=== PATIENT | female | born 1950 | race Caucasian/White ===

== ENCOUNTER → 2018-03-23 | Outpatient (REF) | payer MEDICARE | LOC: M LAB REF 11:48 | DX: N39.0 Urinary tract infection, site not specified (principal) | CPT/HCPCS: 87186 ==

== ENCOUNTER → 2019-05-11 | Outpatient (CLI) | payer MEDICARE ==
[~2019-05-11] MED LIST: ALLE180T33 PO; ATOR1TAB19 PO; ESCI20TA PO; FLON27.5; HYDR25TAB PO; MAGN1CAP PO; METHACHOLINE KIT (J7674) INH ONE; MONT10TA2 PO; OMEP-221 PO; VENTAER INH
--- NOTE | 2019-05-13 13:52 | PFTRPT ---
Height: 64.50 Inches Weight: 117.00 Lbs BSA: 1.57 Diagnosis: COUGH DATE OF PROCEDURE: 05/13/2019 ORDERED BY: Mary Frazier INTERPRETATION: Study of excellent technical quality. Under protocol, methacholine was administered. Even after a maximal dose of 25 mg or 188.875 CDUs, no provocation dose ever achieved. IMPRESSION: Negative methacholine challenge study. MTDD
== END ==
LOC: M CARPUL 10:59
PROVIDERS: ATTEND Nurse Practitioner Adult Health
DX: R05 Cough (principal)
CPT/HCPCS: 94070; 95070; J7674

== ENCOUNTER 2019-06-04 13:15 | Emergency (ER) | payer MEDICARE ==
[~2019-06-04 13:15] MED LIST changes: -METHACHOLINE KIT (J7674) INH ONE
[2019-06-04] MEDS ORDERED: NS 1,000 ML IV SCH (13:24)
--- NOTE | 2019-06-04 13:53 | REP ---
CT HEAD WITHOUT CONTRAST: HISTORY: Altered mental status. An area of decreased attentuation is present in the right basal ganglia. This represents and old lacunar infarction. Areas of decreased attenuation are present in the periventricular white matter. This represents small vessel ischemic disease. There is no intraparenchymal hemorrhage, mass or midline shift. The ventricular system and cortical sulci are dilated consistent with mild volume loss. There is no extracerebral collection. Mucosal thickening is present in the left maxillary sinus. IMPRESSION: 1. Old right basal ganglia lacunar infarction. 2. Small vessel ischemic disease. 3. Mild volume loss. Electronically Signed by Keshav Moore MD 06/04/2019 04:38 P
[2019-06-04 14:27] LABS: BASO % 0.6 % (0.0-1.0); EOS # 0.1 10^3/uL (0.0-0.50); EOS % 1.2 % (0.0-3.0); HEMATOCRIT 39.1 % (36.0-47.0); HEMOGLOBIN 13.8 g/dl (12.0-15.5); LYMPH # 2.1 10^3/uL (1.5-4.5); LYMPH % 32.4 % (24.0-44.0); MEAN CORPUSCULAR HEMOGLOBIN 34.2 pg (27.0-33.0); MEAN CORPUSCULAR HGB CONC 35.3 g/dl (32.0-36.5); MONO # 0.6 10^3/uL (0.0-0.8); MONO % 8.9 % (0.0-5.0); NEUTROPHILS # 3.7 10^3/uL (1.8-7.7); NEUTROPHILS % 56.6 % (36.0-66.0); PLATELET COUNT, AUTOMATED 282 10^3/uL (150-450); RED BLOOD COUNT 4.03 10^6/uL (4.00-5.40); WHITE BLOOD COUNT 6.5 10^3/uL (4.0-10.0)
[2019-06-04 14:40] LABS: INR 0.98; PROTHROMBIN TIME 12.7 SECONDS (11.8-14.0)
[2019-06-04] MEDS ORDERED: HM S0.65 NARES (14:57)
[2019-06-04] MEDS ORDERED: ALLE1TAB23 PO (14:57)
[2019-06-04] MEDS ORDERED: LEXA1TAB2 PO (14:57)
[2019-06-04] MEDS ORDERED: ASPI-524 PO (14:57)
[2019-06-04 15:07] LABS: ALBUMIN 3.9 GM/DL (3.2-5.2); ALT/SGPT 31 U/L (12-78); BILIRUBIN,DIRECT 0.1 MG/DL (0.0-0.2); BILIRUBIN,TOTAL 0.4 MG/DL (0.2-1.0); BLOOD UREA NITROGEN 15 MG/DL (7-18); CALCIUM LEVEL 9.7 MG/DL (8.8-10.2); CARBON DIOXIDE LEVEL 28 MEQ/L (21-32); CHLORIDE LEVEL 103 MEQ/L (98-107); CPK CREATINE PHOSPHOKINASE 60 U/L (26-192); CREATININE FOR GFR 0.65 MG/DL (0.55-1.30); GLOMERULAR FILTRATION RATE > 60.0 (>45); GLUCOSE, FASTING 100 MG/DL (70-100); MB/CK RELATIVE INDEX 1.67 (< OR =4); POTASSIUM SERUM 3.5 MEQ/L (3.5-5.1); SODIUM LEVEL 138 MEQ/L (136-145); TOTAL PROTEIN 7.1 GM/DL (6.4-8.2); TROPONIN I < 0.02 NG/ML (< 0.10)
--- NOTE | 2019-06-04 15:23 | REP ---
CHEST, TWO VIEWS: There is no evidence of acute infiltrate. No pleural effusion is seen. The heart is normal in size. The mediastinal silhouette is unremarkable. The visualized osseous structures are intact. There are mild degenerative changes of the spine. IMPRESSION: No acute pulmonary disease. Electronically Signed by Kaiden Rodriges MD 06/04/2019 03:30 P
[2019-06-04 19:00] VITALS: BP 138/81
[2019-06-04 19:00] LABS: CK-MB VALUE MASS < 1.0 NG/ML (<3.6); CPK CREATINE PHOSPHOKINASE 63 U/L (26-192); MB/CK RELATIVE INDEX 1.59 (< OR =4); TROPONIN I < 0.02 NG/ML (< 0.10)
--- NOTE | 2019-06-06 07:44 | ECGEPIP ---
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
--- NOTE | 2019-06-06 07:55 | ECGEPIP ---
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
== END 2019-06-04 19:26 | disposition home or self-care (01) ==
LOC: M ED 13:15 → EDBD 13:15 → M ED 19:26
DX: G56.92 Unspecified mononeuropathy of left upper limb (principal); R07.89 Other chest pain; I10 Essential (primary) hypertension; E78.5 Hyperlipidemia, unspecified; J44.9 Chronic obstructive pulmonary disease, unspecified; F41.9 Anxiety disorder, unspecified; F32.9 Major depressive disorder, single episode, unspecified; Z91.018 Allergy to other foods; Z88.0 Allergy status to penicillin; Z88.1 Allergy status to other antibiotic agents; Z79.899 Other long term (current) drug therapy; Z79.82 Long term (current) use of aspirin

== ENCOUNTER → 2020-04-29 | Outpatient (CLI) | payer MEDICARE ==
[~2020-04-29] MED LIST changes: +ALLE1TAB23 PO; +ASPI325T57 PO; +HM S0.65 NARES; +LEXA1TAB2 PO; -MONT10TA2 PO; +MONT10TA4 PO
[2020-04-29 16:11] LABS: BASO # 0.1 10^3/uL (0.0-0.2); BASO % 0.6 % (0.0-1.0); EOS # 0.4 10^3/uL (0.0-0.5); EOS % 4.7 % (0.0-3.0); HEMATOCRIT 41.5 % (36.0-47.0); HEMOGLOBIN 13.3 g/dl (12.0-15.5); LYMPH # 2.9 10^3/uL (1.5-5.0); LYMPH % 36.6 % (24.0-44.0); MEAN CORPUSCULAR HEMOGLOBIN 32.9 pg (27.0-33.0); MEAN CORPUSCULAR VOLUME 102.7 fl (80.0-96.0); MONO # 0.7 10^3/uL (0.0-0.8); MONO % 8.7 % (0.0-5.0); NEUTROPHILS # 3.8 10^3/uL (1.5-8.5); PLATELET COUNT, AUTOMATED 303 10^3/uL (150-450); RED BLOOD COUNT 4.04 10^6/uL (4.00-5.40); WHITE BLOOD COUNT 7.8 10^3/uL (4.0-10.0)
[2020-05-02 20:08] LABS: Lyme Disease IgG/IgM Antibodie <0.91 ISR (0.00-0.90); Lyme Disease IgM Ab Quantitati <0.80 index (0.00-0.79)
== END ==
LOC: M WUC 14:13
PROVIDERS: ATTEND Nurse Practitioner Family
DX: M79.10 Myalgia, unspecified site (principal); R21 Rash and other nonspecific skin eruption

== ENCOUNTER 2021-05-26 11:01 | Inpatient (IN) | payer BC, MEDICAID, MEDICARE ==
[~2021-05-26] VITALS: Ht 162.6 cm; Wt 54.5 kg
[2021-05-26] MEDS: ESCITALOPRAM OXALATE 10 MG TAB (LEXAPRO) PO SCH (09:00)
[~2021-05-26 11:01] MED LIST changes: -ESCI20TA PO; +ESCI20TA16 PO; +HYDR-3490 PO; -HYDR25TAB PO; +MONT10TA10 PO; -MONT10TA4 PO
--- NOTE | 2021-05-26 12:14 | REP ---
INDICATION: altered. COMPARISON: Comparison study is from June 04, 2019.. TECHNIQUE: Helical scanning is acquired. 5 mm axial images were reformatted. Coronal MPR images were generated. FINDINGS: Bone window settings demonstrate an intact bony calvarium. There is no evidence of skull fracture or incidental bony calvarial lesion. The visualized paranasal sinuses appear clear. No intraorbital abnormality is seen. On soft tissue window setting images; the lateral, third, and fourth ventricles are normal in size and position. Rodriges-white differentiation pattern is normal above and below the tentorium. There are is no evidence of intracranial hemorrhage. No mass, edema, infarction, or midline shift is seen. No extra-axial fluid collection is appreciated. Vascular calcification is seen at the skull base involving the distal internal carotid arteries bilaterally. There is mild generalized volume loss again noted. Mild small vessel atherosclerotic changes are seen in the periventricular white matter bilaterally also unchanged from the comparison study June 04, 2019. IMPRESSION: Mild generalized volume loss and vascular calcification. Small vessel changes. No acute intracranial abnormality.. <Electronically signed by John Shaffer > 05/26/21 1213
[2021-05-26 12:42] LABS: HEMATOCRIT 39.8 % (36.0-47.0); HEMOGLOBIN 13.3 g/dl (12.0-15.5); MEAN CORPUSCULAR HGB CONC 33.4 g/dl (32.0-36.5); MEAN CORPUSCULAR VOLUME 98.8 fl (80.0-96.0); PLATELET COUNT, AUTOMATED 326 10^3/uL (150-450); RED BLOOD COUNT 4.03 10^6/uL (4.00-5.40); WHITE BLOOD COUNT 6.8 10^3/uL (4.0-10.0)
[2021-05-26 13:03] LABS: CPK CREATINE PHOSPHOKINASE 60 U/L (26-192); MB/CK RELATIVE INDEX 3.33 (< OR =4); TROPONIN I < 0.02 NG/ML (< 0.10)
[2021-05-26 13:09] LABS: ACETAMINOPHEN LEVEL < 2.0 UG/ML (10.0-30.0); ALBUMIN 3.5 GM/DL (3.2-5.2); ALT/SGPT 21 U/L (12-78); BILIRUBIN,DIRECT < 0.1 MG/DL (0.0-0.2); BILIRUBIN,TOTAL 0.3 MG/DL (0.2-1.0); BLOOD UREA NITROGEN 6 MG/DL (7-18); CALCIUM LEVEL 8.8 MG/DL (8.8-10.2); CARBON DIOXIDE LEVEL 28 MEQ/L (21-32); CHLORIDE LEVEL 104 MEQ/L (98-107); CREATININE FOR GFR 0.64 MG/DL (0.55-1.30); ETHYL ALCOHOL (ETHANOL) < 0.003 % (0.000-0.010); GLOMERULAR FILTRATION RATE > 60.0 (>39); GLUCOSE, FASTING 95 MG/DL (70-100); POTASSIUM SERUM 4.1 MEQ/L (3.5-5.1); SALICYLATE LEVEL < 1.7 MG/DL (5.0-30.0); SODIUM LEVEL 138 MEQ/L (136-145); TOTAL PROTEIN 6.8 GM/DL (6.4-8.2)
[2021-05-26] MEDS ORDERED: HOME MED LIST COMPLETE! XX SCH (15:10)
[2021-05-26] MEDS ORDERED: ACETAMINOPHEN TAB 650MG DOSE (2X325MG) PO PRN (15:25)
[2021-05-26] MEDS ORDERED: ALBUTEROL 90 MCG/ACT 8GM HFA INHALER INH PRN (15:25)
[2021-05-26] MEDS ORDERED: HALOPERIDOL 5MG/ML VIAL (J1630 PER 1) IM PRN (15:55)
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
[2021-05-26 17:10] LABS: RSV AMPLIFICATION NEGATIVE (NEGATIVE)
[2021-05-26 20:09] VITALS: BP 157/89
[2021-05-26] MEDS: MONTELUKAST 10 MG TAB PO SCH (21:00)
[2021-05-26] MEDS ORDERED: ASPIRIN 325 MG TAB PO PRN (21:35)
[2021-05-26 21:36] LABS: AMPHETAMINES LEVEL URINE NEGATIVE (NEGATIVE); BARBITURATES URINE NEGATIVE (NEGATIVE); BENZODIAZEPINES URINE NEGATIVE (NEGATIVE); CANNABINOIDS URINE NEGATIVE (NEGATIVE); COCAINE METABOLITE URINE NEGATIVE (NEGATIVE); METHADONE URINE NEGATIVE (NEGATIVE); OPIATES URINE NEGATIVE (NEGATIVE); PHENCYCLIDINE URINE NEGATIVE (NEGATIVE)
[2021-05-27 06:00] VITALS: BP 137/90
[2021-05-27 06:58] LABS: HEMATOCRIT 38.8 % (36.0-47.0); MEAN CORPUSCULAR HEMOGLOBIN 33.2 pg (27.0-33.0); MEAN CORPUSCULAR HGB CONC 33.5 g/dl (32.0-36.5); PLATELET COUNT, AUTOMATED 306 10^3/uL (150-450); RED BLOOD COUNT 3.92 10^6/uL (4.00-5.40); WHITE BLOOD COUNT 6.4 10^3/uL (4.0-10.0)
[2021-05-27 07:29] LABS: BLOOD UREA NITROGEN 7 MG/DL (7-18); CALCIUM LEVEL 9.1 MG/DL (8.8-10.2); CARBON DIOXIDE LEVEL 31 MEQ/L (21-32); CHLORIDE LEVEL 107 MEQ/L (98-107); CREATININE FOR GFR 0.67 MG/DL (0.55-1.30); GLOMERULAR FILTRATION RATE > 60.0 (>39); GLUCOSE, FASTING 87 MG/DL (70-100); POTASSIUM SERUM 4.5 MEQ/L (3.5-5.1); SODIUM LEVEL 141 MEQ/L (136-145)
--- NOTE | 2021-05-27 09:31 | ECGEPIP ---
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
[2021-05-27] MEDS: ESCITALOPRAM OXALATE 10 MG TAB (LEXAPRO) PO SCH (09:55)
[2021-05-27] MEDS: ENOXAPARIN 30MG/0.3ML SYRINGE (J1650 PER 10MG) SC SCH (10:03)
[2021-05-27 14:00] VITALS: BP 139/86
[2021-05-27] MEDS ORDERED: IBUPROFEN 600MG TAB PO PRN (15:30)
--- NOTE | 2021-05-27 18:55 | IPNPDOC ---
Subjective Date Seen The patient was seen on 05/27/21. Subjective Chief Complaint/HPI Mrs. Bone is a 70 year old female with dementia who comes here for possible AMS. Patient was seen in the morning. She was sleepy, but denied any chest pain or dyspnea. Son did arrive with patient's and they visited in the afternoon. Son told nurse that patient's memory has become worse. Patient has has had paranoia. She thinks that her is an imposter and would try to run away and drive the car away. She would get lost, and they would have to search for her. Objective Physical Examination General Exam: Positive: Alert, Cooperative Eye Exam: Positive: EOMI; Negative: Sclera icteric ENT Exam: Positive: Atraumatic Neck Exam: Positive: Supple Heart Exam: Positive: Tachycardic, Regular Rhythm Abdomen Exam: Positive: Normal bowel sounds, Soft; Negative: Tenderness Extremity Exam: Negative: Edema Neuro Exam: Positive: Normal Speech, Cranial Nerves 3-12 NL Psych Exam: Positive: Mental status NL, Mood NL; Negative: Memory Intact Assessment /Plan Assessment Mrs. Bone is a 70 year old female with dementia who comes here for possible AMS. We do not have a family member that we would be able to contact to help understand her baseline mentation. She does not have fever or leukocytosis and she is not on medications that would cause confusion. Will check a UA to look for UTI as a cause for altered mental status. If it is negative, then this may be due to her dementia. If it is dementia, she would need a family member to care for her 20/05 or be placed in a facility where she can be cared for. The is very frail. It may be difficult on the if patient went to live in a jail. If the patient went to live with son in [place], they would have to take too and make room for both. Plan/VTE VTE Prophylaxis Ordered?: Yes Plan 1. AMS vs progressing dementia -No family member to reach out to discuss baseline and home condition -Unlikely infection as patient has no fever, leukocytosis, pain, dyspnea, or hypoxia -Not on medications that would cause confusion -UA is not strongly indicative of infection. Demonstrate 1+ leuk esterase. Unlikely to be infection -If it is dementia, cannot safely discharge patient without someone to care for patient -Patient does not have capacity due to inability to reason or appreciate her situation -Will consult psychiatry for capacity evaluation 2. Hypertension -Patient is agitated which has increased her blood pressure -Continue HCTZ -Monitor blood pressure 3. Asthma -Stable, not in exacerbation -Continue albuterol and montelukast 4. Depression/Anxiety -Continue Escitalopram 5. DVT ppx -Lovenox Disposition: Pending evaluation by psychiatry VS, I&O, 24H, Fishbone Vital Signs/I&O Vital Signs Date Time Temp Pulse Resp B/P (MAP) Pulse Ox O2 Delivery O2 Flow Rate FiO2 05/27/21 14:00 98.5 100 17 139/86 (103) 93 Room Air I&O- Last 24 Hours up to 6 AM 05/27/21 06:00 Intake Total 100 ml Output Total 750 ml Balance -650 ml Laboratory Data 24H LABS Laboratory Tests 2 05/26/21 20:52: Urine Opiates Screen NEGATIVE, Urine Methadone Screen NEGATIVE, Urine Barbitura daniel Screen NEGATIVE, Urine Phencyclidine Screen NEGATIVE, Urine Amphetamines Screen NEGATIVE, Urine Benzodiazepines Screen NEGATIVE, Urine Cocaine Metabolite Screen NEGATIVE, Urine Cannabinoids Screen NEGATIVE 05/26/21 20:54: Urine Color YELLOW, Urine Appearance CLEAR, Urine pH 6.0, Urine Specific [place] 1.010, Urine Protein NEGATIVE, Urine Glucose (UA) NEGATIVE, Urine Ketones TRACEH, Urine Blood NEGATIVE, Urine Nitrite NEGATIVE, Urine Bilirubin NEGATIVE, Urine Urobilinogen 0.2, Urine Leukocyte Esterase 1+H, Urine WBC (Auto) 2, Urine RBC (Auto) 0, Urine Hyaline Casts (Auto) 0, Urine Bacteria (Auto) NEGATIVE, Urine Squamous Epithelial Cells 1, Urine Mucus (Auto) SMALL, Urine Sperm (Auto) 05/27/21 06:34: Nucleated Red Blood Cells % (auto) 0.0, Anion Gap 3L, Glomerular Filtration Rate > 60.0, Calcium Level 9.1 CBC/BMP Laboratory Tests 05/27/21 06:34 Microbiology Microbiology 05/26/21 Urine Culture, Received Pending RUSS IBARRA DO May 27, 2021 18:55
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
[2021-05-27] MEDS: MONTELUKAST 10 MG TAB PO SCH (21:00)
[2021-05-27] MEDS: QUEtiapine FUMARATE 12.5 MG HALF-TAB PO SCH (21:00)
[2021-05-28 06:00] VITALS: BP 130/86
[2021-05-28 06:51] LABS: HEMATOCRIT 39.4 % (36.0-47.0); HEMOGLOBIN 13.3 g/dl (12.0-15.5); MEAN CORPUSCULAR HEMOGLOBIN 33.3 pg (27.0-33.0); MEAN CORPUSCULAR HGB CONC 33.8 g/dl (32.0-36.5); MEAN CORPUSCULAR VOLUME 98.7 fl (80.0-96.0); PLATELET COUNT, AUTOMATED 335 10^3/uL (150-450); RED BLOOD COUNT 3.99 10^6/uL (4.00-5.40)
[2021-05-28 07:10] LABS: BLOOD UREA NITROGEN 7 MG/DL (7-18); CARBON DIOXIDE LEVEL 30 MEQ/L (21-32); CHLORIDE LEVEL 106 MEQ/L (98-107); GLOMERULAR FILTRATION RATE > 60.0 (>39); GLUCOSE, FASTING 96 MG/DL (70-100); POTASSIUM SERUM 4.2 MEQ/L (3.5-5.1); SODIUM LEVEL 140 MEQ/L (136-145)
[2021-05-28] MEDS: QUEtiapine FUMARATE 12.5 MG HALF-TAB PO SCH ×2 (09:00→20:15)
[2021-05-28] MEDS: ESCITALOPRAM OXALATE 10 MG TAB (LEXAPRO) PO SCH (11:19)
[2021-05-28] MEDS: ENOXAPARIN 30MG/0.3ML SYRINGE (J1650 PER 10MG) SC SCH (11:20)
--- NOTE | 2021-05-28 13:10 | IPNPDOC ---
Subjective Date Seen The patient was seen on 05/28/21. Subjective Chief Complaint/HPI Mrs. Bone is a 70 year old female with dementia who comes here for possible AMS. Yesterday, patient tried to leave saying that her is outside in the car waiting for her. Nursing art supervisor walker her to parking lot. No car there. She was walked back to her room. Most likely that she was confabulating. This morning, she denies any chest pain or dyspnea. I recommended that she take the quetiapine. Patient will need to be placed. I will make her ALC today. Objective Physical Examination General Exam: Positive: Alert, Cooperative Eye Exam: Positive: EOMI; Negative: Sclera icteric ENT Exam: Positive: Atraumatic Neck Exam: Positive: Supple Heart Exam: Positive: Tachycardic, Regular Rhythm Abdomen Exam: Positive: Normal bowel sounds, Soft; Negative: Tenderness Extremity Exam: Negative: Edema Neuro Exam: Positive: Normal Speech, Cranial Nerves 3-12 NL Psych Exam: Positive: Mental status NL, Mood NL; Negative: Memory Intact Assessment /Plan Assessment Mrs. Bone is a 70 year old female with dementia who comes here for possible AMS. We do not have a family member that we would be able to contact to help understand her baseline mentation. She does not have fever or leukocytosis and she is not on medications that would cause confusion. Will check a UA to look f or UTI as a cause for altered mental status. If it is negative, then this may be due to her dementia. If it is dementia, she would need a family member to care for her / or be placed in a facility where she can be cared for. On 05/28, urine culture had no growth. She does not have a UTI. The is very frail and has memory problems of his own. He most likely would not be able to care for her at home and she has tried to get away from him in the past. She has taken the car and gotten lost. Patient will be made ALC Plan/VTE VTE Prophylaxis Ordered?: Yes Plan 1. Progressing dementia -Unlikely infection as patient has no fever, leukocytosis, pain, dyspnea, or hypoxia. UA and culture negative -Not on medications that would cause confusion -Patient does not have capacity due to inability to reason or appreciate her situation -Psychiatry evaluated patient. Patient does not have capacity -Recommending Seroquel 12.5mg BID 2. Hypertension -Patient is agitated which has increased her blood pressure -Continue HCTZ -Monitor blood pressure 3. Asthma -Stable, not in exacerbation -Continue albuterol and montelukast 4. Depression/Anxiety -Continue Escitalopram 5. DVT ppx -Lovenox Disposition: Urine culture demonstrates no growth. Patient does not have a UTI. This is progressing dementia. Patient does not have capacity. Patient will most likely need to be placed. Will make patient ALC status today. VS, I&O, 24H, Fishbone Vital Signs/I&O Vital Signs Date Time Temp Pulse Resp B/P (MAP) Pulse Ox O2 Delivery O2 Flow Rate FiO2 05/28/21 06:00 98.0 87 17 130/86 (101) 96 Room Air I&O- Last 24 Hours up to 6 AM 05/28/21 06:00 Intake Total 380 ml Output Total 375 ml Balance 5 ml Laboratory Data 24H LABS Laboratory Tests 2 05/28/21 06:28: Nucleated Red Blood Cells % (auto) 0.0, Anion Gap 4L, Glomerular Filtration Rate > 60.0, Calcium Level 9.0 CBC/BMP Laboratory Tests 05/28/21 06:28 Microbiology Microbiology 05/26/21 Urine Culture - Final, Complete RUSS IBARRA DO May 28, 2021 13:10
[2021-05-28] MEDS: MONTELUKAST 10 MG TAB PO SCH (20:16)
[2021-05-29 06:00] VITALS: BP 133/80
[2021-05-29] MEDS: ENOXAPARIN 30MG/0.3ML SYRINGE (J1650 PER 10MG) SC SCH (08:22)
[2021-05-29] MEDS: ESCITALOPRAM OXALATE 10 MG TAB (LEXAPRO) PO SCH (08:22)
[2021-05-29] MEDS: QUEtiapine FUMARATE 12.5 MG HALF-TAB PO SCH ×3 (08:22→21:00)
[2021-05-29] MEDS: MONTELUKAST 10 MG TAB PO SCH (21:00)
[2021-05-30 06:00] VITALS: BP 144/89
[2021-05-30 06:10] LABS: HEMATOCRIT 40.3 % (36.0-47.0); HEMOGLOBIN 13.6 g/dl (12.0-15.5); MEAN CORPUSCULAR HEMOGLOBIN 32.7 pg (27.0-33.0); MEAN CORPUSCULAR HGB CONC 33.7 g/dl (32.0-36.5); MEAN CORPUSCULAR VOLUME 96.9 fl (80.0-96.0); PLATELET COUNT, AUTOMATED 396 10^3/uL (150-450); RED BLOOD COUNT 4.16 10^6/uL (4.00-5.40); WHITE BLOOD COUNT 6.4 10^3/uL (4.0-10.0)
[2021-05-30 06:30] LABS: BLOOD UREA NITROGEN 9 MG/DL (7-18); CALCIUM LEVEL 9.4 MG/DL (8.8-10.2); CARBON DIOXIDE LEVEL 30 MEQ/L (21-32); CHLORIDE LEVEL 102 MEQ/L (98-107); CREATININE FOR GFR 0.64 MG/DL (0.55-1.30); GLOMERULAR FILTRATION RATE > 60.0 (>39); GLUCOSE, FASTING 92 MG/DL (70-100); POTASSIUM SERUM 4.2 MEQ/L (3.5-5.1); SODIUM LEVEL 139 MEQ/L (136-145)
[2021-05-30] MEDS: QUEtiapine FUMARATE 12.5 MG HALF-TAB PO SCH ×3 (09:00→21:00)
[2021-05-30] MEDS: ESCITALOPRAM OXALATE 10 MG TAB (LEXAPRO) PO SCH (09:29)
[2021-05-30] MEDS: ENOXAPARIN 30MG/0.3ML SYRINGE (J1650 PER 10MG) SC SCH (09:29)
[2021-05-30] MEDS: MONTELUKAST 10 MG TAB PO SCH (21:00)
[2021-05-31 06:00] VITALS: BP 127/75
[2021-05-31] MEDS: ESCITALOPRAM OXALATE 10 MG TAB (LEXAPRO) PO SCH (09:31)
[2021-05-31] MEDS: QUEtiapine FUMARATE 12.5 MG HALF-TAB PO SCH (09:31)
[2021-05-31] MEDS: ENOXAPARIN 30MG/0.3ML SYRINGE (J1650 PER 10MG) SC SCH (09:32)
[2021-05-31] MEDS ORDERED: QUET25TA3 PO (15:55)
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
== END 2021-05-31 16:59 | disposition home or self-care (01) | DRG 884 ==
LOC: M ED 11:01 → M ED INP 11:02 → ENRESERV 17:34 → M MSPAV 20:09 → OBSVTOIN 05-29 09:35
PROVIDERS: ADMIT Internal Medicine; ATTEND Internal Medicine
DX: F03.90 Unspecified dementia, unspecified severity, without behavioral disturbance, psychotic disturbance, mood disturbance, and anxiety (principal); R41.82 Altered mental status, unspecified; I10 Essential (primary) hypertension; J45.909 Unspecified asthma, uncomplicated; F41.9 Anxiety disorder, unspecified; F32.9 Major depressive disorder, single episode, unspecified; Z20.822 Contact with and (suspected) exposure to COVID-19; Z79.899 Other long term (current) drug therapy; Z88.0 Allergy status to penicillin; Z88.2 Allergy status to sulfonamides; Z88.8 Allergy status to other drugs, medicaments and biological substances; Z91.018 Allergy to other foods

== ENCOUNTER 2021-07-06 14:50 | Emergency (ER) | payer MEDICARE ==
[~2021-07-06] VITALS: Ht 162.6 cm; Wt 53.5 kg
[~2021-07-06 14:50] MED LIST changes: +QUET1TAB17 PO
--- NOTE | 2021-07-06 15:58 | REP ---
INDICATION: a;ltered. COMPARISON: Comparison head CT study May 26, 2021. TECHNIQUE: Helical scanning is acquired. 5 mm axial images were reformatted. Coronal MPR images were generated. FINDINGS: Bone window settings demonstrate an intact bony calvarium. There is no evidence of skull fracture or incidental bony calvarial lesion. The visualized paranasal sinuses appear clear. No intraorbital abnormality is seen. On soft tissue window setting images; the lateral, third, and fourth ventricles are normal in size and position. Rodriges-white differentiation pattern is normal above and below the tentorium. There are is no evidence of intracranial hemorrhage. No mass, edema, infarction, or midline shift is seen. No extra-axial fluid collection is appreciated. Generalized volume loss, small vessel changes, and vascular calcification are again noted unchanged from the comparison study. IMPRESSION: Diffuse atrophy, vascular calcification, mild small vessel changes. No acute intracranial abnormality. <Electronically signed by John Shaffer > 07/06/21 2031
[2021-07-06 16:49] LABS: HEMATOCRIT 41.3 % (36.0-47.0); HEMOGLOBIN 13.9 g/dl (12.0-15.5); MEAN CORPUSCULAR HEMOGLOBIN 33.4 pg (27.0-33.0); MEAN CORPUSCULAR HGB CONC 33.7 g/dl (32.0-36.5); MEAN CORPUSCULAR VOLUME 99.3 fl (80.0-96.0); PLATELET COUNT, AUTOMATED 324 10^3/uL (150-450); RED BLOOD COUNT 4.16 10^6/uL (4.00-5.40); WHITE BLOOD COUNT 7.6 10^3/uL (4.0-10.0)
[2021-07-06 17:43] LABS: ACETAMINOPHEN LEVEL < 2.0 UG/ML (10.0-30.0); ALBUMIN 3.6 GM/DL (3.2-5.2); ALT/SGPT 29 U/L (12-78); BILIRUBIN,DIRECT 0.1 MG/DL (0.0-0.2); BILIRUBIN,TOTAL 0.5 MG/DL (0.2-1.0); BLOOD UREA NITROGEN 10 MG/DL (7-18); CALCIUM LEVEL 9.2 MG/DL (8.8-10.2); CARBON DIOXIDE LEVEL 31 MEQ/L (21-32); CHLORIDE LEVEL 105 MEQ/L (98-107); CREATININE FOR GFR 0.71 MG/DL (0.55-1.30); ETHYL ALCOHOL (ETHANOL) 0.004 % (0.000-0.010); GLOMERULAR FILTRATION RATE > 60.0 (>39); GLUCOSE, FASTING 112 MG/DL (70-100); POTASSIUM SERUM 4.4 MEQ/L (3.5-5.1); SALICYLATE LEVEL < 1.7 MG/DL (5.0-30.0); SODIUM LEVEL 140 MEQ/L (136-145); TOTAL PROTEIN 6.9 GM/DL (6.4-8.2)
[2021-07-06] MEDS ORDERED: QUET1TAB17 PO (18:08)
[2021-07-06 18:31] VITALS: BP 167/82
[2021-07-06 18:50] LABS: AMPHETAMINES LEVEL URINE NEGATIVE (NEGATIVE); BARBITURATES URINE NEGATIVE (NEGATIVE); BENZODIAZEPINES URINE NEGATIVE (NEGATIVE); CANNABINOIDS URINE NEGATIVE (NEGATIVE); COCAINE METABOLITE URINE NEGATIVE (NEGATIVE); METHADONE URINE NEGATIVE (NEGATIVE); OPIATES URINE NEGATIVE (NEGATIVE); PHENCYCLIDINE URINE NEGATIVE (NEGATIVE)
--- NOTE | 2021-07-06 19:12 | ECGEPIP ---
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
== END 2021-07-06 18:33 | disposition home or self-care (01) ==
LOC: M ED 14:50
DX: F03.91 Unspecified dementia, unspecified severity, with behavioral disturbance (principal); Z79.51 Long term (current) use of inhaled steroids; Z79.899 Other long term (current) drug therapy; Z88.1 Allergy status to other antibiotic agents; Z88.2 Allergy status to sulfonamides; Z91.018 Allergy to other foods

== ENCOUNTER 2021-07-15 19:59 | Inpatient (IN) | payer MEDICARE ==
[2021-07-15 21:16] LABS: HEMATOCRIT 43.4 % (36.0-47.0); HEMOGLOBIN 14.7 g/dl (12.0-15.5); MEAN CORPUSCULAR HEMOGLOBIN 32.9 pg (27.0-33.0); MEAN CORPUSCULAR HGB CONC 33.9 g/dl (32.0-36.5); MEAN CORPUSCULAR VOLUME 97.1 fl (80.0-96.0); PLATELET COUNT, AUTOMATED 334 10^3/uL (150-450); RED BLOOD COUNT 4.47 10^6/uL (4.00-5.40); WHITE BLOOD COUNT 7.6 10^3/uL (4.0-10.0)
[2021-07-15 21:51] LABS: ACETAMINOPHEN LEVEL < 2.0 UG/ML (10.0-30.0); ALBUMIN 3.6 GM/DL (3.2-5.2); ALT/SGPT 26 U/L (12-78); BILIRUBIN,DIRECT 0.1 MG/DL (0.0-0.2); BILIRUBIN,TOTAL 0.2 MG/DL (0.2-1.0); BLOOD UREA NITROGEN 6 MG/DL (7-18); CALCIUM LEVEL 8.6 MG/DL (8.8-10.2); CARBON DIOXIDE LEVEL 29 MEQ/L (21-32); CHLORIDE LEVEL 106 MEQ/L (98-107); GLOMERULAR FILTRATION RATE > 60.0 (>39); GLUCOSE, FASTING 94 MG/DL (70-100); SALICYLATE LEVEL < 1.7 MG/DL (5.0-30.0); SODIUM LEVEL 142 MEQ/L (136-145); TOTAL PROTEIN 6.8 GM/DL (6.4-8.2)
[2021-07-16 03:01] LABS: COLOR, URINE MANUAL YELLOW (YELLOW)
[2021-07-16 03:02] LABS: APPEARANCE, URINE MANUAL HAZY (CLEAR); BILIRUBIN, URINE MANUAL NEGATIVE (NEGATIVE); BLOOD URINE MANUAL NEGATIVE (NEGATIVE); GLUCOSE, URINE (UA) MANUAL NEGATIVE (NEGATIVE); KETONE, URINE MANUAL NEGATIVE (NEGATIVE); LEUKOCYTE ESTERASE, URINE MAN TRACE (NEGATIVE); NITRITE, URINE MANUAL NEGATIVE (NEGATIVE); PROTEIN, URINE MANUAL TRACE mg/dL (NEGATIVE); UROBILINOGEN, URINE MANUAL NORMAL (NORMAL)
[2021-07-16 03:03] LABS: AMPHETAMINES LEVEL URINE NEGATIVE (NEGATIVE); BARBITURATES URINE NEGATIVE (NEGATIVE); BENZODIAZEPINES URINE NEGATIVE (NEGATIVE); CANNABINOIDS URINE NEGATIVE (NEGATIVE); COCAINE METABOLITE URINE NEGATIVE (NEGATIVE); METHADONE URINE NEGATIVE (NEGATIVE); OPIATES URINE NEGATIVE (NEGATIVE); PHENCYCLIDINE URINE NEGATIVE (NEGATIVE)
[2021-07-16 03:10] LABS: BACTERIA, URINE NONE SEEN; RBC, URINE NONE SEEN /hpf (0-3); SQUAMOUS EPITHELIAL CELL URINE SMALL AMOUNT /hpf (SMALL AMT)
[2021-07-16 03:12] LABS: HYALINE CAST, URINE 0-1 /lpf (0-1)
[2021-07-16 03:13] LABS: AMORPHOUS SEDIMENT, URINE SMALL AMOUNT (NEGATIVE); MUCUS, URINE SMALL AMOUNT (NEGATIVE)
[2021-07-16] MEDS ORDERED: NICOTINE 21MG/24HR 1 EA TRANSDERMAL TD PRN (03:40)
[2021-07-16] MEDS ORDERED: MOM 30ML SUSPENSION UDC PO PRN (03:40)
[2021-07-16] MEDS ORDERED: QUEtiapine FUMARATE 25 MG TAB PO PRN (03:40)
[2021-07-16] MEDS ORDERED: ACETAMINOPHEN TAB 650MG DOSE (2X325MG) PO PRN (03:40)
[2021-07-16] MEDS ORDERED: MAALOX 30 ML SUSP *UDC PO PRN (03:40)
[2021-07-16 03:52] LABS: RSV AMPLIFICATION NEGATIVE (NEGATIVE)
[2021-07-16] MEDS ORDERED: HOME MED LIST COMPLETE! XX SCH (04:10)
[2021-07-16 04:40] VITALS: BP 132/92
[2021-07-16] MEDS ORDERED: ALBUTEROL 90 MCG/ACT 8GM HFA INHALER INH PRN (09:00)
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
[2021-07-16] MEDS: ESCITALOPRAM OXALATE 10 MG TAB (LEXAPRO) PO SCH (09:46)
--- NOTE | 2021-07-16 09:47 | MHIPNPDOC ---
[facility] Progress Note Progress Note DATE OF SERVICE: 07/16/21 Per collateral from Romie Lindsey who called me back: States he does want to have his back in that he does not have infidelities with another partner rather a friendship with a person who he does not see too often. States he would like to have her come back if she is stable but reports over the last 2 to 3 months he is noticed a change in her personality that has led to arguments and that she periodically will switch from being normal to angry and not her usual self, the fluctuations last a day maximum and she does not drink excessively he reports that she drinks a maximum of 1-2 drinks daily. States that he did not realize it first why the verbal arguments were occurring and did not realize that she had some underlying cause but soon figured this out. Reports he: Never picked up because she made vehement suicidal ideation statements without any specific plan, which was concerning to him is new behavior. Reports he does not think she takes the Seroquel that she was prescribed on her last hospitalization, but that may be she does. Feels that she improves may return home to him, u nderstands she may need a higher level of care in the meantime being processed, understands this will be looked into by social work and coordination with her treatment team. Spoke with patient to start low-dose Seroquel, discussed side effects including risk for increased mortality and elderly dementia patients, NMS, EPS, heart arrhythmias. Ordered fasting labs for tomorrow and EKG. Vital Signs Vital Signs Date Time Temp Pulse Resp B/P (MAP) Pulse Ox O2 Delivery O2 Flow Rate FiO2 07/16/21 04:40 97.3 113 16 132/92 (105) 98 Room Air Laboratory Data 24H Labs Laboratory Tests 2 07/15/21 20:36: Nucleated Red Blood Cells % (auto) 0.0, Anion Gap 7L, Glomerular Filtration Rate > 60.0, Calcium Level 8.6L, Total Bilirubin 0.2, Direct Bilirubin 0.1, Aspartate Amino Transf (AST/SGOT) 24, Alanine Aminotransferase (ALT/SGPT) 26, Alkaline Phosphatase 89, Total Protein 6.8, Albumin 3.6, Albumin/Globulin Ratio 1.1L, Thyroid Stimulating Hormone (TSH) 2.220, Salicylates Level < 1.7L, Acetaminophen Level < 2.0L, Ethyl Alcohol Level 0.130H 07/16/21 02:40: Bedside Urine Color (LAB) YELLOW, Bedside Urine Appearance (LAB) HAZYH, Bedside Urine pH (LAB) 6.0, Bedside Urine Specific [place] (LAB 1.010, Bedside Urine Protein (LAB) TRACEH, Bedside Urine Glucose (UA) NEGATIVE, Bedside Urine Ketones (LAB) NEGATIVE, Bedside Urine Blood NEGATIVE, Bedside Urine Nitrite (LAB) NEGATI VE, Bedside Urine Bilirubin (LAB) NEGATIVE, Bedside Urine Urobilinogen (LAB) NORMAL, Bedside Urine Leukocyte Esterase (L TRACEH, Urine Sediment Examination PERFORMED, Urine RBC NONE SEEN, Urine WBC 1-3, Urine Squamous Epithelial Cells SMALL AMOUNT, Urine Amorphous Sediment SMALL AMOUNTH, Urine Bacteria NONE SEEN, Urine Hyaline Casts 0-1, Urine Mucus SMALL AMOUNTH, Urine Opiates Screen NEGATIVE, Urine Methadone Screen NEGATIVE, Urine Barbiturates Screen NEGATIVE, Urine Phencyclidine Screen NEGATIVE, Urine Amphetamines Screen NEGATIVE, Urine Benzodiazepines Screen NEGATIVE, Urine Cocaine Metabolite Screen NEGATIVE, Urine Cannabinoids Screen NEGATIVE 07/16/21 03:10: Coronavirus (COVID-19)(PCR) NEGATIVE, Influenza Type A (RT-PCR) NEGATIVE, Influenza Type B (RT-PCR) NEGATIVE, Respiratory Syncytial Virus (PCR) NEGATIVE CBC/BMP Laboratory Tests 07/15/21 20:36 Current Medications Current Medications Medications (Trade) Dose Ordered Sig/Nuvia Route PRN Reason Start Time Stop Time Status Last Admin Dose Admin Acetaminophen (Tylenol Tab) 650 mg Q6HP PRN PO HEADACHE or MILD DISCOMFORT 07/16/21 03:40 Al Hydrox/Mg Hydrox/Simethicone (Mylanta) 30 ml Q4HP PRN PO HEARTBURN/INDIGESTION 07/16/21 03:40 Albuterol Sulfate (Proventil, Ventolin Hfa) 2 puff Q4HP PRN INH SHORTNESS OF BREATH 07/16/21 09:00 Escitalopram Oxalate (Lexapro) 40 mg DAILY PO 07/16/21 09:00 Home Med (Home Med List Complete!) ASDIRECTED XX 07/16/21 04:10 07/16/21 04:17 DC Hydrochlorothiazide (Hydrodiuril) 25 mg DAILY PO 07/16/21 09:00 Magnesium Hydroxide (Milk Of Magnesia) 30 ml DAILYPRN PRN PO CONSTIPATION 07/16/21 03:40 Nicotine (Nicoderm Cq 21mg) 1 patch DAILY PRN TD NICOTINE WITHDRAWAL 07/16/21 03:40 Quetiapine Fumarate (SEROquel) 25 mg Q6HP PRN PO AGITATION 07/16/21 03:40 Allergies Coded Allergies: [place] And Derivatives (Verified Allergy, Unknown, lips twitch with lemon; orange cough diff swallowing, 04/13/19) Penicillins (Verified Allergy, Unknown, hives, 04/13/19) Sulfa (Sulfonamide Antibiotics) (Verified Allergy, Unknown, hives; angioedema, 04/13/19) Unclassified (Verified Allergy, Unknown, MOST ANTIBIOTICS, 07/16/21) Blueberry (Verified Adverse Reaction, Unknown, delierious, 04/13/19) chloramphenicol (Verified Adverse Reaction, Unknown, bloody diarrhea, 04/13/19) BONI RAMÍREZ MD Jul 16, 2021 09:47
[2021-07-16] MEDS: QUEtiapine FUMARATE 12.5 MG HALF-TAB PO SCH ×2 (10:01→20:22)
[2021-07-16 12:17] LABS: CHOLESTEROL RISK RATIO 3.055 (<5)
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
[2021-07-16] MEDS ORDERED: ISOVUE-370 76% 100ML VIAL As Ordered ONE (12:57)
--- NOTE | 2021-07-16 14:38 | REP ---
INDICATION: R/O PE.. COMPARISON: None. TECHNIQUE: Imaging protocol: CT angiography of the chest with IV contrast. Contiguous 3 mm thick axial projection images were obtained through the chest. 2D sagittal and coronal reconstructions were performed. Radiation optimization: All CT scans at this facility use at least one of these dose optimization techniques: automated exposure control; mA and/or kV adjustment per patient size (includes targeted exams where dose is matched to clinical indication); or iterative reconstruction. CONTRAST: 75 cc Isovue 370 IV. FINDINGS: Lower neck: The thyroid gland is normal. There is no supraclavicular lymphadenopathy. Mediastinum: No abnormal masses or lymphadenopathy. Heart/thoracic aorta/pulmonary arterial tree: The heart size is normal. There is no pericardial effusion. There is calcific vascular disease of the thoracic aorta and coronary arteries. There are no filling defects in the pulmonary arterial tree. Upper abdomen: There are large cortical cyst of both kidneys. There is a 15 mm gallstone at the gallbladder neck. There are additional gallstones. The gallbladder is abnormally dilated measuring 5.5 cm in short axis diameter. Thoracic esophagus: There is a small hiatal hernia. Chest wall and axilla: The breasts and soft tissues of the chest wall appear normal. There is no axillary lymphadenopathy. There is mild multilevel degenerative disc disease of the thoracic spine. Lung parenchyma: The lungs are clear. There are no pulmonary nodules or masses. There is no significant interstitial or alveolar lung disease. There are no pleural effusions. IMPRESSION: 1. No evidence of pulmonary emboli. 2. Cholelithiasis. 3. There is a gallstone at the gallbladder neck with resultant abnormal dilatation of the gallbladder (gallbladder hydrops). 4. Other findings as noted. <Electronically signed by Alex Ortega > 07/16/21 [id number]
--- NOTE | 2021-07-16 15:09 | ECGEPIP ---
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
--- NOTE | 2021-07-16 15:11 | ECGEPIP ---
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
--- NOTE | 2021-07-16 17:01 | REP ---
INDICATION: r/o DVT. COMPARISON: None. TECHNIQUE: 2D and color Doppler ultrasound evaluation of the deep venous system of both lower extremities was performed. FINDINGS: Examination of the deep venous system of both lower extremities reveals no evidence of deep venous thrombosis. There is a fluid collection in the left popliteal fossa consistent with a Madison's cyst. IMPRESSION: 1. No evidence of deep venous thrombosis of either lower extremity. 2. Madison's cyst, left popliteal fossa. <Electronically signed by Alex Ortega > 07/16/21 [id number]
[2021-07-17 07:11] VITALS: BP 159/74
[2021-07-17 07:23] LABS: CHOLESTEROL LEVEL 226 MG/DL (<200); CHOLESTEROL RISK RATIO 3.013 (<5); HDL CHOLESTEROL 75 MG/DL (>40); LDL CHOLESTEROL 129 MG/DL (<100); NON-HDL-C 151 MG/DL; TRIGLYCERIDES LEVEL 109 MG/DL (<150)
[2021-07-17] MEDS: QUEtiapine FUMARATE 12.5 MG HALF-TAB PO SCH (08:22)
[2021-07-17] MEDS: ESCITALOPRAM OXALATE 10 MG TAB (LEXAPRO) PO SCH (08:22)
[2021-07-17] MEDS ORDERED: PREVNAR 13 VACCINE SYRINGE IM ONE (09:00)
[2021-07-17] MEDS ORDERED: FLUBLOK(EGG FREE)(QUAD)INFLUENZA VACC 0.5ML SYRINGE 18YRS & OLDER IM ONE (09:00)
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
--- NOTE | 2021-07-17 14:04 | MHIPNPDOC ---
[facility] Progress Note Progress Note DATE OF SERVICE: 07/17/21 Patient was found to have very labile mood later, concerns with leaving and nobody calling her in the phones not working. Seroquel was increased to 25 mg twice daily patient was agreeable and is aware of side effects including increased mortality in elderly with neurocognitive disorder. Vital Signs Vital Signs Date Time Temp Pulse Resp B/P (MAP) Pulse Ox O2 Delivery O2 Flow Rate FiO2 07/17/21 07:11 98.3 78 18 159/74 (102) 95 Room Air Laboratory Data 24H Labs Laboratory Tests 2 07/16/21 16:10: Troponin I < 0.02 07/17/21 06:24: Triglycerides Level 109, Total Cholesterol 226H, LDL Cholesterol 129H, Non-HDL Cholesterol (LDL + VLDL) 151, Total HDL Cholesterol 75, Cholesterol/HDL Ratio 3.013 Current Medications Current Medications Medications (Trade) Dose Ordered Sig/Nuvia Route PRN Reason Start Time Stop Time Status Last Admin Dose Admin Acetaminophen (Tylenol Tab) 650 mg Q6HP PRN PO HEADACHE or MILD DISCOMFORT 07/16/21 03:40 Al Hydrox/Mg Hydrox/Simethicone (Mylanta) 30 ml Q4HP PRN PO HEARTBURN/INDIGESTION 07/16/21 03:40 Albuterol Sulfate (Proventil, Ventolin Hfa) 2 puff Q4HP PRN INH SHORTNESS OF BREATH 07/16/21 09:00 Escitalopram Oxalate (Lexapro) 40 mg DAILY PO 07/16/21 09:00 07/17/21 08:22 Home Med (Home Med List Complete!) ASDIRECTED XX 07/16/21 04:10 07/16/21 04:17 DC Hydrochlorothiazide (Hydrodiuril) 25 mg DAILY PO 07/16/21 09:00 07/17/21 08:22 Magnesium Hydroxide (Milk Of Magnesia) 30 ml DAILYPRN PRN PO CONSTIPATION 07/16/21 03:40 Nicotine (Nicoderm Cq 21mg) 1 patch DAILY PRN TD NICOTINE WITHDRAWAL 07/16/21 03:40 Quetiapine Fumarate (SEROquel) 12.5 mg BID PO 07/16/21 09:00 07/17/21 13:19 DC 07/17/21 08:22 Quetiapine Fumarate (SEROquel) 25 mg BID PO 07/17/21 21:00 Quetiapine Fumarate (SEROquel) 25 mg Q6HP PRN PO AGITATION 07/16/21 03:40 Quetiapine Fumarate (SEROquel) 25 mg QHS PO 07/17/21 21:00 07/17/21 13:45 DC Allergies Coded Allergies: [place] And Derivatives (Verified Allergy, Unknown, lips twitch with lemon; orange cough diff swallowing, 04/13/19) Penicillins (Verified Allergy, Unknown, hives, 04/13/19) Sulfa (Sulfonamide Antibiotics) (Verified Allergy, Unknown, hives; angioedema, 04/13/19) Unclassified (Verified Allergy, Unknown, MOST ANTIBIOTICS, 07/16/21) Blueberry (Verified Adverse Reaction, Unknown, delierious, 04/13/19) chloramphenicol (Verified Adverse Reaction, Unknown, bloody diarrhea, 04/13/19) BONI RAMÍREZ MD Jul 17, 2021 14:04
[2021-07-17] MEDS: DONEPEZIL 5 MG TAB PO SCH (14:20)
[2021-07-17 15:36] LABS: VITAMIN B12 LEVEL 148 PG/ML (247-911)
[2021-07-17 17:49] VITALS: BP 156/82
[2021-07-17] MEDS ORDERED: QUEtiapine FUMARATE 25 MG TAB PO SCH (21:00)
[2021-07-17] MEDS: QUEtiapine FUMARATE 25 MG TAB PO SCH (21:25)
[2021-07-18 06:00] VITALS: BP 143/79
[2021-07-18] MEDS: ESCITALOPRAM OXALATE 10 MG TAB (LEXAPRO) PO SCH (09:34)
[2021-07-18] MEDS: DONEPEZIL 5 MG TAB PO SCH (09:36)
[2021-07-18] MEDS: QUEtiapine FUMARATE 25 MG TAB PO SCH (09:36)
[2021-07-18] MEDS ORDERED: ARIC1TAB PO (11:57)
[2021-07-18] MEDS ORDERED: QUET1TAB17 PO (11:57)
[2021-07-18] MEDS ORDERED: NICO21PAT TD (11:57)
[2021-07-18] MEDS ORDERED: LEXA1TAB2 PO (11:57)
[2021-07-18] MEDS ORDERED: HYDR-3490 PO (11:57)
--- NOTE | 2021-07-18 16:35 | MHDSPDOC ---
[facility] Discharge Summary Discharge Summary DATE OF ADMISSION: Jul 16, 2021 at 03:36 DATE OF DISCHARGE: Jul 18, 2021 at 12:59 Discharge diagnoses: Reason for admission: Patient is a 70 -year-old , female with a history of dementia and, Altered mental status requiring hospitalization and evaluation May 26, 2021, who presents to the ED after domestic argument at home, reports that her Romie Lindsey is "always screaming at me all the time that his MO, so I scream back at him. He does not do anything at home to help out. He has a new girlfriend and is moving out, he is a bully". Before he moved out he changed all the phones that they cannot be used or found. Vital signs: See below Consultants involved: See medical H&P by hospitalist Treatment and progress on the unit: Patient was admitted to the [facility] 9.39 legal status and was afforded the following treatment modalities: 1. Individual therapy 2. Group therapy 3. Medication management 4. Milieu therapy 5. Safe environment Hospital course: Patient was admitted to the [facility]EDS AT THE [facility] on a 9.39 legal status. Was medically cleared prior to coming up to the [facility] 234 BEDS AT THE [facility]. Patient was continued on her home dose of Lexapro, has started on Seroquel 12.5 mg twice daily which she was previously placed on when last admitted to the [facility] 234 BEDS AT THE [facility] for altered mental status. Patient reported the seroquel had a nasty taste when having the pills split in half, so Seroquel was changed to 25 mg nightly, patient was encouraged to take this medication as there was concern for noncompliance after previous admission. [place] was completed and found to be 15 out of 30. Neurology was consulted for work-up and suggested starting donepezil 5 mg daily as well as having work-up for B12, which was low at 148, ordered B12 and B6 supplementation, was not anemic per lab work-up. RPR is pending. there was concern for PE per medical team. Patient had full work-up for delirium which was unremarkable, was alert and oriented x3. Seroquel was briefly held until work-up was completed. Per medicine work-up, due to concern for sinus tachycardia at 113, QTC was 467 ms, EKG showed no acute ischemic findings. Per hospitalist team electronic read septal infarct I suspect this was artifact due to lead placement. Troponins <0.02 x 2. TSH within normal limit at 2.2, D-dimer was elevated to 500, however venous bilateral duplex negative for DVT. CTA was ordered for PE, found to be a negative study for PE. Further tachycardia have resolved. Patient denied any symptoms of PE include shortness of breath, chest pain or other acute physical symptoms that were bothersome. CT did show a gallstone in the neck of gallbladder with hydrops, no acute management indicated by hospitalist team evaluation, should be followed up outpatient. Was initially pleasant during her stay but then became irritable and frustrated by being on the inpatient unit for the medical work-up and to ensure safe discharge plan considering has history of wandering from home. On admission wanted to stay away from and prior to discharge was agreeable to returning to him. Was initially on admission paranoid of him being unfaithful, bullying this is confirmed from collateral from son and from . patient found medications beneficial and tolerated them well. Denies moo, anxiety and intrusive thoughts which improved with treatment. Patient attended groups daily during stay. Patient symptoms improved with treatment. On day of discharge patient denied depression, anxiety, insomnia, suicidal or homicidal ideations intent or plan, hallucinations, delusions. Patient was discharged home with follow-up. Patient felt safe for discharge. Was offered continued stay involuntary admission but refused. Patient was frustrated with not being able to be discharged fast enough and was demanding discharge from nursing staff stating "I can choose to leave if I want to". Patient was able to be redirected and be calm and, did not endorse suicidal or homicidal ideation, intent or plan, just that she wants work home and was really annoyed with myself and other staff for keeping her here. This is despite me explaining to her that we were trying to get her discharged today. Prior to discharge made aware has internal medicine outpatient visit, and needs to follow-up with this provider. Patient was encouraged to take donepezil 5 mg p.o. daily for memory, as has been refusing. Patient was encoura ged not to drink alcohol even in small amounts due to worsening of cognition, mood, risk for suicide. Discharge assessment: On today's interview patient is alert and oriented, dressed appropriately. Hygiene and grooming is well-kept. Is pleasant and eng aged on interview, after initially being highly irritable and frustrated with me after being kept in the hospital to ensure to safe discharge. Denies depression and anxiety. Denies suicidal homicidal ideation, intent or planning. Denies and is not observed with laura or psychotic symptoms of delusions, hallucinations, bizarre thinking, obsessions, paranoia, ruminations, illogical thoughts, flight of ideas or having poor insight or judgment. Patient has normal mentation, declines further hospitalization of voluntary status and meets criteria for discharge today, patient encouraged to return the hospital if symptoms worsen or change and encouraged to call unit if they feel they need provider's questions to be answered or help with medications or care. Mental status: General Appearance: well groomed, hospital scubs/clothing Build: thin Demeanor: average Eye Contact: average Activity: average Behavior: cooperative Speech: clear, spontaneous Mood: euthymic Mood "totally fine" Affect: full, mildly irritable begin to hospital, improved with discussion of discharge Thought Process: circumstantial Thought Content (Delusions): No longer endorsing delusions, denies SI, HI, AVH Thought Content (Other): none reported Thought Content (Aggressive): none reported Perception (Hallucinations): none reported Perception (Other): none reported Cognition (Impairment of): none reported Cognition(Intelligence Est.): borderline Oriented: Awake, Alert, Oriented times three Insight: Improved, considering feeling frustrated being in the hospital and wanting to leave due to other patients feeling on the unit, wanting to be home with her Judgment: Fair, improved Psychosis: Denies Medications on discharge: see medication reconciliation: CSSRS on discharge: Wish to be : No nonspecific active suicidal thoughts: No lifetime attempts: 0 interrupted attempts: 0 aborted attempts: 0 preparatory acts or behavior: None Taking into consideration safety state, status, modifiable, non-modifiable risk factors patient is at low risk on discharge for suicide according to [place] suicide evaluation. Follow-up appointments: Follow Up Care Education Label * Mental Health Appt 1 * Mental [facility] * Established With This Provider Yes * Therapist DR. CORTEZ * Date Jul 21, 2021 * Time 09:15 * Address of Clinic or Practice [address] [place] [address] * Follow Up Care Education Label * Medical * Medical Follow Up [facility] * Established With This Provider Yes * Therapist DR. MILADYS FERNANDES * Date Jul 28, 2021 * Time 11:00 * Address of Clinic or Practice [address] [place] [address] * Follow Up Care Education Label * Medical * Medical Follow Up [facility] * Established With This Provider No NEW PATIENT/ REFERAL * Additional information [facility] WAS NOTIFIED OF REQUESTED REFERAL, THEY WILL CONTACT THE PATIENT DIRECTLY WITH APPOINTMENT. Notes to outside medical provider: Requires B12 supplementation be continued and RPR lab result followed up. total time: 40 minutes ETOH/Disorder Med Rx ETOH/DRUG DISORDER RX: Offrd @ d/c & pt refused Vital Signs/I&Os Vital Signs Date Time Temp Pulse Resp B/P (MAP) Pulse Ox O2 Delivery O2 Flow Rate FiO2 07/18/21 06:00 98.5 97 18 143/79 (100) 97 07/17/21 07:11 Room Air Medications Scheduled B12/Levomefolate Calcium/B-6 (Foltx Tablet) 1 Each Tablet, 1 TAB PO DAILY for low b12 for 30 Days, #30 Donepezil HCl (Aricept) 5 Mg Tablet, 5 MG PO DAILY for dementia, #7 Escitalopram Oxalate (Lexapro) 20 Mg Tablet, 40 MG PO DAILY for depression, #14 Quetiapine Fumarate (Quetiapine Fumarate) 25 Mg Tablet, 25 MG PO BID for psychosis, #14 Scheduled PRN Albuterol Sulfate (Ventolin Hfa) 18 Gm Hfa.aer.ad, 2 PUFFS INH QID PRN for SOB/WHEEZING, (Reported) Hydrochlorothiazide (Hydrochlorothiazide) 25 Mg Tablet, 25 MG PO DAILY PRN for HIGH BLOOD PRESSURE, #7 Montelukast Sodium (Montelukast Sodium) 10 Mg Tablet, 10 MG PO QHS PRN for ALLERGIES, (Reported) Nicotine (Nicotine Patch) 21 Mg Patch.td24, 1 PATCH TD DAILY PRN for NICOTINE WITHDRAWAL, #7 Allergies Coded Allergies: [place] And Derivatives (Verified Allergy, Unknown, lips twitch with lemon; orange cough diff swallowing, 04/13/19) Penicillins (Verified Allergy, Unknown, hives, 04/13/19) Sulfa (Sulfonamide Antibiotics) (Verified Allergy, Unknown, hives; angioedema, 04/13/19) Unclassified (Verified Allergy, Unknown, MOST ANTIBIOTICS, 07/16/21) Blueberry (Verified Adverse Reaction, Unknown, delierious, 04/13/19) chloramphenicol (Verified Adverse Reaction, Unknown, bloody diarrhea, 04/13/19) BONI RAMÍREZ MD Jul 18, 2021 16:35
[2021-07-18] MEDS ORDERED: FOLTTAB9 PO (16:36)
--- NOTE | 2021-07-18 17:23 | CR ---
NEUROLOGY CONSULTATION DATE: 07/18/2021 REASON FOR CONSULTATION: Suspected dementia with evaluation for dementia requested. HISTORY OF PRESENT ILLNESS: Betzy Bone is a 70-year-old right handed female who is admitted currently to the inpatient Mental Health Unit for suicidal thoughts. The patient has had a longstanding history of cognitive decline. She has poor insight into how much cognitive decline she has. She thinks she only has minor difficulty with her memory. The patient has history of wandering and has a wrist beacon placed. She likely has Alzheimer's dementia. During her workup at [facility] I recommended that she have her B-12 level checked. Her level was low at 148. She should be started on B-12 1,000 mcg intramuscular injections once a week for 4 weeks followed by monthly. The patient is in agreement with this. She is oriented to her name, location, the correct month, the correct year. She does not have the correct day or date. She is off by only one day. She is able to follow commands and repeat. She had difficulty spelling "world" backwards by a few letters. The patient is not driving. She can take care of all of her own ADLs. She is not having any visual or auditory hallucinations. She was intoxicated during this admission. She states she only drinks one drink a day. She likely drinks more. She denies any use of tobacco or illicit drugs. PAST MEDICAL HISTORY: The patient's past medical history is significant for: 1. Dementia. 2. Anxiety. 3. Depression. 4. Hypertension. PAST SURGICAL HISTORY: The patient's past surgical history is significant for two C-sections. FAMILY HISTORY: The patient's family history is negative for mother with bipolar disorder and a younger sister with cannabis abuse. ALLERGIES: 1. Dust. 2. Pollen. 3. Blueberries. 4. [place]. 5. Penicillin. 6. . SOCIAL HISTORY: The patient drinks at least gin and tonic a day, possibly more. She denies use of tobacco or illicit drugs. PHYSICAL EXAMINATION: VITAL SIGNS: Blood pressure 159/74, pulse rate 78, respiratory rate is 18, temperature is 98.3 degrees Fahrenheit, oxygenation is 95% on room air. GENERAL APPEARANCE: The patient is oriented to person, place and time. Speech, language, comprehension and repetition are intact. HEENT: Pupils are 3 mm and round. The extraocular muscles are intact. NEUROLOGICAL: There is no facial weakness. Tongue is midline. Hearing is equal to finger rub. There is no loss of sensation to light touch in the face, arms or legs. There is no ataxia, dysmetria, or tremor. Romberg testing and gait are normal. Strength is 5/5 including bilateral deltoids, biceps, triceps, hand screw machine hand, psoas, quadriceps, anterior tibialis. Deep tendon reflexes are 2+ throughout. IMAGING STUDIES: Head CT reveals microvascular disease and atrophy, completed in early June 2021. ASSESSMENT: 1. Suspect Alzheimer's dementia. 2. Cannot entirely exclude dementia worsened by B-12 deficiency. PLAN: 1. Start B-12 1,000 mcg intramuscular injections weekly for 4 weeks, then monthly after. 2. Placement of patient as per Primary Care Team. The patient is unable to live alone and independently as she is a wandering risk. She does have a beacon. She has poor insight and judgment into her cognitive impairments and would pose a danger to herself. 3. Further workup and management as per Psychiatric Team. 4. The patient can follow up in the [facility] after discharge.
== END 2021-07-18 12:59 | disposition home or self-care (01) | DRG 884 ==
LOC: M ED 19:59 → M ED INP 07-16 03:36 → M PSY 07-16 04:36 → UNDODISIN 07-16 04:36
PROVIDERS: ADMIT Student in an Organized Health Care Education/Training Program; ATTEND Student in an Organized Health Care Education/Training Program
DX: F03.91 Unspecified dementia, unspecified severity, with behavioral disturbance (principal); J45.909 Unspecified asthma, uncomplicated; I10 Essential (primary) hypertension; K21.9 Gastro-esophageal reflux disease without esophagitis; Z88.0 Allergy status to penicillin; Z88.2 Allergy status to sulfonamides; Z91.018 Allergy to other foods; Z88.8 Allergy status to other drugs, medicaments and biological substances; Z79.899 Other long term (current) drug therapy; F10.10 Alcohol abuse, uncomplicated

== ENCOUNTER → 2021-10-10 | Outpatient (REF) | payer MEDICARE, MEDICAID ==
[~2021-10-10] MED LIST changes: +ARIC1TAB PO; +DOXY-443 PO; +FOLTTAB9 PO; -MONT10TA10 PO; +MONT10TA97 PO; +NICO21PAT TD; -OMEP-221 PO; +OMEP40CA5 PO
== END ==
LOC: M LAB REF 16:21
PROVIDERS: ATTEND Internal Medicine
DX: D51.9 Vitamin B12 deficiency anemia, unspecified (principal)

== ENCOUNTER 2021-10-28 12:52 | Emergency (ER) | payer MEDICARE, MEDICAID ==
[~2021-10-28] VITALS: Ht 165.1 cm; Wt 51.3 kg
[~2021-10-28 12:52] MED LIST changes: -DOXY-443 PO; +MONT10TA10 PO; -MONT10TA97 PO; +OMEP-221 PO; -OMEP40CA5 PO
[2021-10-28 14:22] LABS: BASO # 0.1 10^3/uL (0.0-0.2); BASO % 0.8 % (0.0-1.0); EOS # 0.2 10^3/uL (0.0-0.5); HEMATOCRIT 47.1 % (36.0-47.0); HEMOGLOBIN 15.7 g/dl (12.0-15.5); LYMPH # 2.1 10^3/uL (1.5-5.0); LYMPH % 33.7 % (24.0-44.0); MEAN CORPUSCULAR HEMOGLOBIN 33.5 pg (27.0-33.0); MEAN CORPUSCULAR HGB CONC 33.3 g/dl (32.0-36.5); MEAN CORPUSCULAR VOLUME 100.4 fl (80.0-96.0); MONO # 0.4 10^3/uL (0.0-0.8); MONO % 6.6 % (2.0-8.0); NEUTROPHILS # 3.4 10^3/uL (1.5-8.5); NEUTROPHILS % 55.7 % (36.0-66.0); PLATELET COUNT, AUTOMATED 363 10^3/uL (150-450); RED BLOOD COUNT 4.69 10^6/uL (4.00-5.40); WHITE BLOOD COUNT 6.1 10^3/uL (4.0-10.0)
[2021-10-28 14:33] LABS: INR 0.91; PARTIAL THROMBOPLASTIN TIME 28.9 SECONDS (25.9-37.0); PROTHROMBIN TIME 12.7 SECONDS (12.7-14.5)
[2021-10-28 14:47] LABS: ALBUMIN 4.3 GM/DL (3.2-5.2); ALT/SGPT 32 U/L (12-78); BILIRUBIN,TOTAL 0.6 MG/DL (0.2-1.0); BLOOD UREA NITROGEN 8 MG/DL (7-18); CALCIUM LEVEL 9.9 MG/DL (8.8-10.2); CARBON DIOXIDE LEVEL 29 MEQ/L (21-32); CHLORIDE LEVEL 102 MEQ/L (98-107); GLOMERULAR FILTRATION RATE > 60.0 (>39); GLUCOSE, FASTING 99 MG/DL (70-100); POTASSIUM SERUM 4.7 MEQ/L (3.5-5.1); SODIUM LEVEL 140 MEQ/L (136-145); TOTAL PROTEIN 8.4 GM/DL (6.4-8.2)
[2021-10-28 15:01] LABS: RSV AMPLIFICATION NEGATIVE (NEGATIVE)
[2021-10-28] MEDS ORDERED: ISOVUE-370 76% 100ML VIAL As Ordered ONE (15:48)
--- NOTE | 2021-10-28 16:36 | REP ---
INDICATION: coughing up bloody tissue COMPARISON: None. TECHNIQUE: Axial contrast enhanced images from the thoracic inlet to the upper abdomen using pulmonary embolus technique with multiplanar re-formations. 75 ml Isovue 370 intravenous contrast material administered without complication. This CT examination was performed using the following dose reduction techniques: Automated exposure control, adjustment of mA and/or kv according to the patient's size, and use of iterative reconstruction technique. FINDINGS: Satisfactory enhancement of the pulmonary vasculature is achieved and no filling defects are identified to suggest pulmonary embolus. Further evaluation of the mediastinum demonstrates normal thoracic aorta, heart and pericardium. The bilateral lung de león demonstrate chronic age-related interstitial changes and mild posterior basilar dependent changes. There are very subtle small patchy ground-glass opacities noted bilaterally which raise suspicion for early multifocal pneumonia versus COVID-19 pulmonary disease. No effusion. No pneumothorax. Tracheobronchial tree is patent. No significant adenopathy. Limited upper abdomen demonstrates innumerable simple bilateral peripelvic and cortical renal cysts measuring up to 5.3 cm right kidney. The gallbladder is distended and demonstrates multiple gallstones including possible gallstone lodged at the neck of the gallbladder. IMPRESSION: 1. No evidence for pulmonary embolus. 2. Extremely subtle scattered bilateral airspace opacities raise the possibility of early acute multifocal pneumonia versus COVID-19 pulmonary disease.. <Electronically signed by Celio Montoya > 10/28/21 [id number]
[2021-10-28] MEDS ORDERED: NS 1,000 ML IV ONE (17:15)
[2021-10-28] MEDS ORDERED: AZTREONAM 2 GM in D5W MINI-BAG PLUS 100 ML IV ONE (17:15)
[2021-10-28] MEDS ORDERED: DOXY-443 PO (17:34)
[2021-10-28 17:58] VITALS: BP 130/86
== END 2021-10-28 18:00 | disposition left against medical advice (07) ==
LOC: M ED 12:52
DX: J18.9 Pneumonia, unspecified organism (principal); E86.0 Dehydration; F03.90 Unspecified dementia, unspecified severity, without behavioral disturbance, psychotic disturbance, mood disturbance, and anxiety; Z53.9 Procedure and treatment not carried out, unspecified reason; J32.9 Chronic sinusitis, unspecified; F32.A Depression, unspecified; F41.9 Anxiety disorder, unspecified; Z88.0 Allergy status to penicillin; Z88.2 Allergy status to sulfonamides; Z88.8 Allergy status to other drugs, medicaments and biological substances; Z79.899 Other long term (current) drug therapy
CPT/HCPCS: 36415; 71275; 80053; 85025; 85610; 85730; 87631; 99283; Q9967

== ENCOUNTER → 2021-12-26 | Outpatient (REF) | payer MEDICARE, MEDICAID ==
[~2021-12-26] MED LIST changes: +DOXY-443 PO; -MONT10TA10 PO; +MONT10TA97 PO; -OMEP-221 PO; +OMEP40CA5 PO
[2021-12-26 14:09] LABS: FOLATE 7.3 NG/ML
== END ==
LOC: M LAB REF 12:22
PROVIDERS: ATTEND Internal Medicine
DX: R41.3 Other amnesia (principal); D51.9 Vitamin B12 deficiency anemia, unspecified; E51.9 Thiamine deficiency, unspecified

== ENCOUNTER → 2022-02-14 | Outpatient (CLI) | payer MEDICAID, MEDICARE | LOC: M RAD 09:49 | PROVIDERS: ATTEND Otolaryngology | DX: J32.4 Chronic pansinusitis (principal) ==

== ENCOUNTER 2022-02-24 12:43 | Emergency (ER) | payer MEDICARE ==
[~2022-02-24] VITALS: Ht 165.1 cm; Wt 60.9 kg
[2022-02-24] MEDS ORDERED: OLAN1TAB16 (12:53)
[2022-02-24] MEDS ORDERED: KETO2CR (12:53)
[2022-02-24] MEDS ORDERED: LEXA1TAB2 (12:53)
[2022-02-24] MEDS ORDERED: QUET1TAB17 (12:53)
[2022-02-24] MEDS ORDERED: DONE10TA90 (12:53)
[2022-02-24 14:57] VITALS: BP 158/81
== END 2022-02-24 15:28 | disposition home or self-care (01) ==
LOC: M ED 12:43
DX: F03.90 Unspecified dementia, unspecified severity, without behavioral disturbance, psychotic disturbance, mood disturbance, and anxiety (principal); I10 Essential (primary) hypertension; J45.909 Unspecified asthma, uncomplicated; K21.9 Gastro-esophageal reflux disease without esophagitis; Z88.0 Allergy status to penicillin; Z88.1 Allergy status to other antibiotic agents; Z88.2 Allergy status to sulfonamides; Z88.8 Allergy status to other drugs, medicaments and biological substances; Z91.018 Allergy to other foods; Z79.899 Other long term (current) drug therapy; Z87.891 Personal history of nicotine dependence

== ENCOUNTER → 2022-04-16 | Outpatient (REF) | payer MEDICARE ==
[~2022-04-16] MED LIST changes: +DONE10TA90; +KETO2CR; +LEXA1TAB2; +OLAN1TAB16; +QUET1TAB17
[2022-04-16 13:36] LABS: THYROID STIMULATING HORMONE 2.22 uIU/ML (0.358-3.740)
[2022-04-16 13:37] LABS: FOLATE 8.2 NG/ML
== END ==
LOC: M LAB REF 12:49
PROVIDERS: ATTEND Internal Medicine
DX: D51.9 Vitamin B12 deficiency anemia, unspecified (principal); G30.1 Alzheimer's disease with late onset; E03.9 Hypothyroidism, unspecified

== ENCOUNTER → 2022-08-07 | Outpatient (CLI) | payer MEDICARE | LOC: M WHC 12:04 | PROVIDERS: ATTEND Internal Medicine | DX: R92.8 Other abnormal and inconclusive findings on diagnostic imaging of breast (principal) ==

== ENCOUNTER → 2022-08-28 | Outpatient (CLI) | payer MEDICARE | LOC: M WHC 09:03 | PROVIDERS: ATTEND Internal Medicine | DX: R92.2 Inconclusive mammogram (principal); N63.10 Unspecified lump in the right breast, unspecified quadrant | CPT/HCPCS: 77065; G0279 ==

== ENCOUNTER 2022-12-18 00:56 | Emergency (ER) | payer BC, MEDICARE ==
[~2022-12-18] VITALS: Ht 162.6 cm; Wt 51.8 kg
[2022-12-18 01:13] VITALS: BP 172/83
[2022-12-18] MEDS ORDERED: NS 500 ML IV ONE (01:30)
[2022-12-18 02:42] LABS: BASO # 0.1 10^3/uL (0.0-0.2); BASO % 0.6 % (0.0-1.0); EOS # 0.2 10^3/uL (0.0-0.5); EOS % 1.5 % (0.0-3.0); HEMATOCRIT 43.1 % (36.0-47.0); MEAN CORPUSCULAR HGB CONC 32.5 g/dl (32.0-36.5); MEAN CORPUSCULAR VOLUME 98.4 fl (80.0-96.0); MONO # 0.7 10^3/uL (0.0-0.8); MONO % 7.1 % (2.0-8.0); NEUTROPHILS # 7.1 10^3/uL (1.5-8.5); NEUTROPHILS % 70.4 % (36.0-66.0); PLATELET COUNT, AUTOMATED 331 10^3/uL (150-450); RED BLOOD COUNT 4.38 10^6/uL (4.00-5.40); WHITE BLOOD COUNT 10.1 10^3/uL (4.0-10.0)
[2022-12-18 03:59] LABS: ALBUMIN 3.2 G/DL (3.2-5.2); BILIRUBIN,DIRECT 0.1 MG/DL (<0.4); BILIRUBIN,TOTAL 0.4 MG/DL (0.3-1.2); TOTAL PROTEIN 6.9 G/DL (5.7-8.2)
[2022-12-18] MEDS ORDERED: FOSFOMYCIN TROMETHAMINE 3 GM POWDER PACKET (MONUROL) PO ONE (05:35)
[2022-12-18] MEDS ORDERED: methylPREDNISolone 125MG 2ML VIAL IV ONE (05:35)
[2022-12-18] MEDS ORDERED: MEDR4PAK PO (05:36)
== END 2022-12-18 06:29 | disposition home or self-care (01) ==
LOC: EDBD 00:56 → M ED 00:56
DX: N39.0 Urinary tract infection, site not specified (principal); M51.26 Other intervertebral disc displacement, lumbar region; Z88.0 Allergy status to penicillin; Z88.2 Allergy status to sulfonamides; Z88.8 Allergy status to other drugs, medicaments and biological substances; Z91.018 Allergy to other foods; Z79.891 Long term (current) use of opiate analgesic; Z79.899 Other long term (current) drug therapy

== ENCOUNTER 2023-05-22 12:17 | Inpatient (IN) | payer MEDICARE ==
[~2023-05-22] VITALS: Ht 167.6 cm; Wt 59.2 kg
[~2023-05-22 12:17] MED LIST changes: -DONE10TA90; +DONE10TA90 PO; -HM S0.65 NARES; -LEXA1TAB2; +MEDR4PAK PO; -OLAN1TAB16; +OLAN1TAB16 PO; +SALI0.6531 NARES
[2023-05-22] MEDS ORDERED: ACETAMINOPHEN TAB 650MG DOSE (2X325MG) PO ONE (12:45)
[2023-05-22 13:13] LABS: APPEARANCE, URINE HAZY (CLEAR); BACTERIA, URINE AUTO 1+ (NEGATIVE); BILIRUBIN, URINE AUTO NEGATIVE (NEGATIVE); BLOOD, URINE BLOOD 3+ (NEGATIVE); COLOR, URINE YELLOW (YELLOW); GLUCOSE, URINE (UA) AUTO NEGATIVE (NEGATIVE); KETONE, URINE AUTO TRACE mg/dL (NEGATIVE); LEUKOCYTE ESTERASE, URINE AUTO NEGATIVE (NEGATIVE); MUCUS, URINE SMALL (NEGATIVE); NITRITE, URINE AUTO NEGATIVE (NEGATIVE); PROTEIN, URINE AUTO 1+ mg/dL (NEGATIVE); RBC, URINE AUTO 1 /HPF (0-3); SPECIFIC GRAVITY URINE AUTO 1.019 (1.002-1.035); SQUAMOUS EPITHELIAL CELL UR AU 0 /HPF (0-6); UROBILINOGEN, URINE AUTO 0.2 mg/dL (0.0-2.0); WBC, URINE AUTO 2 /HPF (0-3)
[2023-05-22] MEDS ORDERED: ACETAMINOPHEN 1000MG 100ML IV BAG IV ONE (13:50)
[2023-05-22] MEDS ORDERED: NS 1,650 ML in IV 1 EA IV ONE (15:00)
[2023-05-22 15:11] LABS: BASO % 0.4 % (0.0-1.0); HEMATOCRIT 37.8 % (36.0-47.0); HEMOGLOBIN 13.1 g/dl (12.0-15.5); LYMPH % 12.5 % (24.0-44.0); MEAN CORPUSCULAR HEMOGLOBIN 32.8 pg (27.0-33.0); MEAN CORPUSCULAR HGB CONC 34.7 g/dl (32.0-36.5); MEAN CORPUSCULAR VOLUME 94.5 fl (80.0-96.0); MONO # 0.8 10^3/uL (0.0-0.8); MONO % 10.2 % (2.0-8.0); NEUTROPHILS # 6.3 10^3/uL (1.5-8.5); NEUTROPHILS % 76.5 % (36.0-66.0); PLATELET COUNT, AUTOMATED 240 10^3/uL (150-450); WHITE BLOOD COUNT 8.3 10^3/uL (4.0-10.0)
[2023-05-22] MEDS ORDERED: cefTRIAXone SOD 2 GM in D5W MINI-BAG PLUS 50 ML IV ONE (15:15)
[2023-05-22 15:22] LABS: INR 1.03; PROTHROMBIN TIME 13.7 SECONDS (12.5-14.5)
[2023-05-22 15:23] LABS: PARTIAL THROMBOPLASTIN TIME 28.2 SECONDS (24.8-34.2)
[2023-05-22 15:40] LABS: ALBUMIN 3.5 G/DL (3.2-5.2); ALKALINE PHOSPHATASE 78 U/L (46-116); ALT/SGPT 54 U/L (7.0-40); AST/SGOT 143 U/L (<34); BILIRUBIN,DIRECT 0.3 MG/DL (<0.4); BILIRUBIN,TOTAL 0.7 MG/DL (0.3-1.2); BLOOD UREA NITROGEN 12 MG/DL (9-23); CALCIUM LEVEL 8.7 MG/DL (8.3-10.6); CARBON DIOXIDE LEVEL 24 MMOL/L (20-31); CHLORIDE LEVEL 103 MMOL/L (98-107); CREATININE FOR GFR 0.67 MG/DL (0.55-1.30); GLOMERULAR FILTRATION RATE > 60.0 (>39); GLUCOSE, FASTING 115 MG/DL (74-106); POTASSIUM SERUM 3.5 MMOL/L (3.5-5.1); SODIUM LEVEL 137 MMOL/L (136-145); TOTAL PROTEIN 6.4 G/DL (5.7-8.2)
[2023-05-22 15:41] LABS: ABG BASE EXCESS -0.4 (-2.0-2.0); ABG HCO3 23.4 MMOL/L (22.0-26.0); ABG O2 SATURATION 95.5 % (95.0-99.0); ABG PARTIAL PRESSURE CO2 35.6 mmHg (35.0-45.0); ABG PARTIAL PRESSURE O2 75.7 mmHg (75.0-100.0); ABG STANDARD HCO3 24.1 MMOL/L. (22.0-26.0); ABG TOTAL CO2 24.5 MMOL/L (23.0-31.0); ABG pH (ARTERIAL) 7.435 UNITS (7.350-7.450)
[2023-05-22 15:53] LABS: CPK CREATINE PHOSPHOKINASE 5178 U/L (34-145); MB/CK RELATIVE INDEX 0.77 (< OR =4)
[2023-05-22 16:44] LABS: CK-MB VALUE MASS 38.7 NG/ML (<3.6)
[2023-05-22 17:02] LABS: MB/CK RELATIVE INDEX 0.75 (< OR =4)
[2023-05-22] MEDS ORDERED: NS 1,000 ML IV SCH (18:20)
[2023-05-22] MEDS ORDERED: MOM 30ML SUSPENSION UDC PO PRN (19:05)
[2023-05-22 20:29] LABS: PROCALCITONIN 0.09 ng/ml
[2023-05-22] MEDS: QUEtiapine FUMARATE 25 MG TAB PO SCH (21:00)
[2023-05-22] MEDS: DOCUSATE SODIUM 100MG CAPSULE PO SCH (21:00)
[2023-05-22 22:10] VITALS: BP 112/60; TEMP 97.9; O2SAT 99
[2023-05-22 22:13] LABS: C REACTIVE PROTEIN QUANTITATIV 3.1 MG/DL (<1.0)
[2023-05-22] MEDS ORDERED: med rec comment (23:11)
[2023-05-22] MEDS ORDERED: HOME MED LIST COMPLETE! XX SCH (23:15)
[2023-05-22] MEDS ORDERED: NS 1,000 ML IV ONE (23:45)
[2023-05-23] MEDS: NS 1,000 ML IV SCH ×2 (00:15→08:46)
[2023-05-23] MEDS: FAMOTIDINE 20 MG TAB PO SCH ×3 (00:24→20:07)
[2023-05-23] MEDS: OLANZapine 5 MG TAB PO SCH ×3 (00:24→20:08)
[2023-05-23 04:50] VITALS: BP 156/93; TEMP 98.2; O2SAT 96
[2023-05-23 06:26] LABS: BASO # 0.1 10^3/uL (0.0-0.2); BASO % 0.7 % (0.0-1.0); EOS % 0.3 % (0.0-3.0); HEMATOCRIT 45.4 % (36.0-47.0); HEMOGLOBIN 14.8 g/dl (12.0-15.5); LYMPH # 1.2 10^3/uL (1.5-5.0); LYMPH % 16.3 % (24.0-44.0); MEAN CORPUSCULAR HEMOGLOBIN 31.7 pg (27.0-33.0); MEAN CORPUSCULAR HGB CONC 32.6 g/dl (32.0-36.5); MEAN CORPUSCULAR VOLUME 97.2 fl (80.0-96.0); MONO # 0.5 10^3/uL (0.0-0.8); MONO % 7.4 % (2.0-8.0); NEUTROPHILS # 5.4 10^3/uL (1.5-8.5); NEUTROPHILS % 74.9 % (36.0-66.0); PLATELET COUNT, AUTOMATED 223 10^3/uL (150-450); RED BLOOD COUNT 4.67 10^6/uL (4.00-5.40); WHITE BLOOD COUNT 7.3 10^3/uL (4.0-10.0)
[2023-05-23 06:48] LABS: ERYTHROCYTE SEDIMENTATION RATE 23 mm/hr (0-30)
[2023-05-23 06:49] LABS: BLOOD UREA NITROGEN 7 MG/DL (9-23); CALCIUM LEVEL 8.2 MG/DL (8.3-10.6); CARBON DIOXIDE LEVEL 22 MMOL/L (20-31); CHLORIDE LEVEL 106 MMOL/L (98-107); CREATININE FOR GFR 0.56 MG/DL (0.55-1.30); GLOMERULAR FILTRATION RATE > 60.0 (>39); GLUCOSE, FASTING 80 MG/DL (74-106); POTASSIUM SERUM 4.5 MMOL/L (3.5-5.1); SODIUM LEVEL 140 MMOL/L (136-145)
[2023-05-23] MEDS: ESCITALOPRAM OXALATE 10 MG TAB (LEXAPRO) PO SCH (08:38)
[2023-05-23] MEDS: SODIUM CHLORIDE NASAL 0.65% SPRAY BTL (OCEAN) SCH ×3 (08:38→20:12)
[2023-05-23] MEDS: DONEPEZIL 5 MG TAB PO SCH (08:38)
[2023-05-23] MEDS: DOCUSATE SODIUM 100MG CAPSULE PO SCH ×2 (08:38→20:07)
[2023-05-23] MEDS: ENOXAPARIN 40MG/0.4ML SYRINGE (J1650 PER 10MG) SC SCH (08:38)
[2023-05-23 11:24] LABS: THYROID STIMULATING HORMONE 2.018 uIU/ML (0.55-4.78)
[2023-05-23 14:00] VITALS: BP 116/76; TEMP 98.8; O2SAT 98
[2023-05-23] MEDS: cefTRIAXone SOD 1 GM in D5W MINI-BAG PLUS 50 ML IV SCH (15:38)
[2023-05-23] MEDS: QUEtiapine FUMARATE 25 MG TAB PO SCH (20:08)
[2023-05-23 21:29] VITALS: BP 113/75; TEMP 101.7; O2SAT 91
[2023-05-23] MEDS ORDERED: ACETAMINOPHEN TAB 650MG DOSE (2X325MG) PO PRN (22:10)
[2023-05-23] MEDS ORDERED: ACETAMINOPHEN 1000MG 100ML IV BAG IV ONE (23:00)
[2023-05-23 23:45] VITALS: TEMP 98.2
[2023-05-24 05:48] VITALS: BP 126/81; TEMP 98.4; O2SAT 94
[2023-05-24 06:04] LABS: BASO % 0.4 % (0.0-1.0); EOS # 0.1 10^3/uL (0.0-0.5); EOS % 1.3 % (0.0-3.0); HEMATOCRIT 36.3 % (36.0-47.0); LYMPH # 2.4 10^3/uL (1.5-5.0); LYMPH % 35.4 % (24.0-44.0); MEAN CORPUSCULAR HEMOGLOBIN 32.7 pg (27.0-33.0); MEAN CORPUSCULAR HGB CONC 33.9 g/dl (32.0-36.5); MEAN CORPUSCULAR VOLUME 96.5 fl (80.0-96.0); MONO # 0.7 10^3/uL (0.0-0.8); MONO % 10.9 % (2.0-8.0); NEUTROPHILS # 3.5 10^3/uL (1.5-8.5); NEUTROPHILS % 51.7 % (36.0-66.0); PLATELET COUNT, AUTOMATED 224 10^3/uL (150-450); RED BLOOD COUNT 3.76 10^6/uL (4.00-5.40); WHITE BLOOD COUNT 6.7 10^3/uL (4.0-10.0)
[2023-05-24 06:22] LABS: HEMOGLOBIN 12.3 g/dl (12.0-15.5)
[2023-05-24 06:50] LABS: BLOOD UREA NITROGEN 6 MG/DL (9-23); CALCIUM LEVEL 8.3 MG/DL (8.3-10.6); CARBON DIOXIDE LEVEL 27 MMOL/L (20-31); CHLORIDE LEVEL 112 MMOL/L (98-107); CPK CREATINE PHOSPHOKINASE 1769 U/L (34-145); CREATININE FOR GFR 0.58 MG/DL (0.55-1.30); GLOMERULAR FILTRATION RATE > 60.0 (>39); GLUCOSE, FASTING 103 MG/DL (74-106); MAGNESIUM LEVEL 2.2 MG/DL (1.8-2.4); POTASSIUM SERUM 3.1 MMOL/L (3.5-5.1); SODIUM LEVEL 146 MMOL/L (136-145)
[2023-05-24 08:03] LABS: ERYTHROCYTE SEDIMENTATION RATE 28 mm/hr (0-30)
[2023-05-24] MEDS: ENOXAPARIN 40MG/0.4ML SYRINGE (J1650 PER 10MG) SC SCH (08:31)
[2023-05-24] MEDS: DOCUSATE SODIUM 100MG CAPSULE PO SCH ×2 (08:31→20:58)
[2023-05-24] MEDS: OLANZapine 5 MG TAB PO SCH ×2 (08:31→20:25)
[2023-05-24] MEDS: ESCITALOPRAM OXALATE 10 MG TAB (LEXAPRO) PO SCH (08:31)
[2023-05-24] MEDS: DONEPEZIL 5 MG TAB PO SCH (08:32)
[2023-05-24] MEDS: SODIUM CHLORIDE NASAL 0.65% SPRAY BTL (OCEAN) SCH ×3 (08:32→20:58)
[2023-05-24] MEDS: FAMOTIDINE 20 MG TAB PO SCH ×2 (08:32→20:24)
[2023-05-24] MEDS ORDERED: POTASSIUM CHLORIDE 10MEQ SR TABLET PO ONE (09:00)
[2023-05-24 14:00] VITALS: BP 136/89; TEMP 98.1; O2SAT 90
[2023-05-24] MEDS: cefTRIAXone SOD 1 GM in D5W MINI-BAG PLUS 50 ML IV SCH (16:04)
[2023-05-24] MEDS: QUEtiapine FUMARATE 25 MG TAB PO SCH (20:25)
[2023-05-24 21:00] VITALS: BP 138/89; TEMP 98.6; O2SAT 95
[2023-05-25] VITALS (8 sets, daily range): BP systolic 129–163; BP diastolic 78–108; TEMP 97.5–97.9; O2SAT 93–97
[2023-05-25 06:05] LABS: HEMATOCRIT 39.7 % (36.0-47.0); HEMOGLOBIN 13.2 g/dl (12.0-15.5); MEAN CORPUSCULAR HEMOGLOBIN 32.3 pg (27.0-33.0); MEAN CORPUSCULAR HGB CONC 33.2 g/dl (32.0-36.5); MEAN CORPUSCULAR VOLUME 97.1 fl (80.0-96.0); PLATELET COUNT, AUTOMATED 260 10^3/uL (150-450); RED BLOOD COUNT 4.09 10^6/uL (4.00-5.40); WHITE BLOOD COUNT 7.4 10^3/uL (4.0-10.0)
[2023-05-25 06:32] LABS: CPK CREATINE PHOSPHOKINASE 921 U/L (34-145)
[2023-05-25] MEDS ORDERED: NS 1,000 ML IV SCH (07:45)
[2023-05-25 08:09] LABS: BLOOD UREA NITROGEN 8 MG/DL (9-23); CALCIUM LEVEL 8.7 MG/DL (8.3-10.6); CARBON DIOXIDE LEVEL 28 MMOL/L (20-31); CHLORIDE LEVEL 105 MMOL/L (98-107); CREATININE FOR GFR 0.56 MG/DL (0.55-1.30); GLOMERULAR FILTRATION RATE > 60.0 (>39); GLUCOSE, FASTING 109 MG/DL (74-106); POTASSIUM SERUM 3.4 MMOL/L (3.5-5.1); SODIUM LEVEL 144 MMOL/L (136-145)
[2023-05-25] MEDS: ENOXAPARIN 40MG/0.4ML SYRINGE (J1650 PER 10MG) SC SCH (09:16)
[2023-05-25] MEDS: FAMOTIDINE 20 MG TAB PO SCH (09:17)
[2023-05-25] MEDS: ESCITALOPRAM OXALATE 10 MG TAB (LEXAPRO) PO SCH (09:17)
[2023-05-25] MEDS: DOCUSATE SODIUM 100MG CAPSULE PO SCH ×2 (09:17→21:00)
[2023-05-25] MEDS: OLANZapine 5 MG TAB PO SCH (09:17)
[2023-05-25] MEDS: SODIUM CHLORIDE NASAL 0.65% SPRAY BTL (OCEAN) SCH ×2 (09:17→17:25)
[2023-05-25] MEDS: DONEPEZIL 5 MG TAB PO SCH (09:17)
[2023-05-25] MEDS ORDERED: POTASSIUM CHLORIDE 10MEQ SR TABLET PO ONE (11:20)
[2023-05-25] MEDS: cefTRIAXone SOD 1 GM in D5W MINI-BAG PLUS 50 ML IV SCH (14:51)
[2023-05-26] MEDS: SODIUM CHLORIDE NASAL 0.65% SPRAY BTL (OCEAN) SCH ×4 (00:12→21:10)
[2023-05-26] MEDS: QUEtiapine FUMARATE 25 MG TAB PO SCH ×2 (00:12→21:03)
[2023-05-26] MEDS: FAMOTIDINE 20 MG TAB PO SCH ×3 (00:12→21:03)
[2023-05-26] MEDS: OLANZapine 5 MG TAB PO SCH ×3 (00:12→21:03)
[2023-05-26 01:35] VITALS: BP 118/73; O2SAT 93
[2023-05-26 04:21] VITALS: BP 119/73; TEMP 97.6; O2SAT 93
[2023-05-26 04:50] VITALS: BP 113/72; TEMP 97.9; O2SAT 92
[2023-05-26 06:19] LABS: HEMATOCRIT 37.2 % (36.0-47.0); HEMOGLOBIN 12.1 g/dl (12.0-15.5); MEAN CORPUSCULAR HEMOGLOBIN 31.8 pg (27.0-33.0); MEAN CORPUSCULAR HGB CONC 32.5 g/dl (32.0-36.5); MEAN CORPUSCULAR VOLUME 97.9 fl (80.0-96.0); PLATELET COUNT, AUTOMATED 260 10^3/uL (150-450)
[2023-05-26] MEDS: DONEPEZIL 5 MG TAB PO SCH (09:08)
[2023-05-26] MEDS: ESCITALOPRAM OXALATE 10 MG TAB (LEXAPRO) PO SCH (09:08)
[2023-05-26] MEDS: DOCUSATE SODIUM 100MG CAPSULE PO SCH ×2 (09:08→21:03)
[2023-05-26] MEDS: ENOXAPARIN 40MG/0.4ML SYRINGE (J1650 PER 10MG) SC SCH (09:09)
[2023-05-26] MEDS: cefTRIAXone SOD 1 GM in D5W MINI-BAG PLUS 50 ML IV SCH (14:07)
[2023-05-27 04:50] VITALS: BP 137/87; TEMP 97.9; O2SAT 92
[2023-05-27 05:44] LABS: HEMATOCRIT 37.6 % (36.0-47.0); HEMOGLOBIN 12.4 g/dl (12.0-15.5); MEAN CORPUSCULAR VOLUME 96.9 fl (80.0-96.0); PLATELET COUNT, AUTOMATED 285 10^3/uL (150-450); RED BLOOD COUNT 3.88 10^6/uL (4.00-5.40); WHITE BLOOD COUNT 5.7 10^3/uL (4.0-10.0)
[2023-05-27] MEDS: ESCITALOPRAM OXALATE 10 MG TAB (LEXAPRO) PO SCH (09:27)
[2023-05-27] MEDS: FAMOTIDINE 20 MG TAB PO SCH ×2 (09:27→21:00)
[2023-05-27] MEDS: OLANZapine 5 MG TAB PO SCH ×2 (09:27→21:00)
[2023-05-27] MEDS: DOCUSATE SODIUM 100MG CAPSULE PO SCH ×2 (09:27→21:00)
[2023-05-27] MEDS: ENOXAPARIN 40MG/0.4ML SYRINGE (J1650 PER 10MG) SC SCH (09:27)
[2023-05-27] MEDS: DONEPEZIL 5 MG TAB PO SCH (09:27)
[2023-05-27] MEDS: SODIUM CHLORIDE NASAL 0.65% SPRAY BTL (OCEAN) SCH ×3 (09:28→20:46)
[2023-05-27] MEDS: QUEtiapine FUMARATE 25 MG TAB PO SCH (21:00)
[2023-05-28 05:32] VITALS: BP 151/86; TEMP 98.6; O2SAT 93
[2023-05-28 05:59] LABS: HEMATOCRIT 37.1 % (36.0-47.0); MEAN CORPUSCULAR HEMOGLOBIN 31.9 pg (27.0-33.0); MEAN CORPUSCULAR HGB CONC 32.3 g/dl (32.0-36.5); MEAN CORPUSCULAR VOLUME 98.7 fl (80.0-96.0); PLATELET COUNT, AUTOMATED 312 10^3/uL (150-450); RED BLOOD COUNT 3.76 10^6/uL (4.00-5.40); WHITE BLOOD COUNT 7.8 10^3/uL (4.0-10.0)
[2023-05-28] MEDS: SODIUM CHLORIDE NASAL 0.65% SPRAY BTL (OCEAN) SCH ×3 (09:36→21:00)
[2023-05-28] MEDS: FAMOTIDINE 20 MG TAB PO SCH ×2 (09:36→21:08)
[2023-05-28] MEDS: DONEPEZIL 5 MG TAB PO SCH (09:36)
[2023-05-28] MEDS: DOCUSATE SODIUM 100MG CAPSULE PO SCH ×2 (09:36→21:08)
[2023-05-28] MEDS: OLANZapine 5 MG TAB PO SCH ×2 (09:36→21:08)
[2023-05-28] MEDS: ESCITALOPRAM OXALATE 10 MG TAB (LEXAPRO) PO SCH (09:36)
[2023-05-28] MEDS: ENOXAPARIN 40MG/0.4ML SYRINGE (J1650 PER 10MG) SC SCH (09:36)
[2023-05-28] MEDS: QUEtiapine FUMARATE 25 MG TAB PO SCH (21:08)
[2023-05-29 05:49] VITALS: BP 149/87; TEMP 98.1; O2SAT 93
[2023-05-29 05:59] LABS: HEMATOCRIT 36.9 % (36.0-47.0); HEMOGLOBIN 11.8 g/dl (12.0-15.5); MEAN CORPUSCULAR HEMOGLOBIN 31.9 pg (27.0-33.0); MEAN CORPUSCULAR VOLUME 99.7 fl (80.0-96.0); PLATELET COUNT, AUTOMATED 324 10^3/uL (150-450); WHITE BLOOD COUNT 7.1 10^3/uL (4.0-10.0)
[2023-05-29] MEDS: SODIUM CHLORIDE NASAL 0.65% SPRAY BTL (OCEAN) SCH ×3 (08:40→20:22)
[2023-05-29] MEDS: DONEPEZIL 5 MG TAB PO SCH (08:40)
[2023-05-29] MEDS: OLANZapine 5 MG TAB PO SCH ×2 (08:40→20:00)
[2023-05-29] MEDS: DOCUSATE SODIUM 100MG CAPSULE PO SCH ×2 (08:40→20:00)
[2023-05-29] MEDS: ENOXAPARIN 40MG/0.4ML SYRINGE (J1650 PER 10MG) SC SCH ×2 (08:40→09:00)
[2023-05-29] MEDS: FAMOTIDINE 20 MG TAB PO SCH ×2 (08:40→20:00)
[2023-05-29] MEDS: ESCITALOPRAM OXALATE 10 MG TAB (LEXAPRO) PO SCH (08:41)
[2023-05-29] MEDS: QUEtiapine FUMARATE 25 MG TAB PO SCH (20:00)
[2023-05-30 06:00] VITALS: BP 124/73; TEMP 97.7; O2SAT 96
[2023-05-30 06:07] LABS: HEMATOCRIT 37.4 % (36.0-47.0); HEMOGLOBIN 12.6 g/dl (12.0-15.5); MEAN CORPUSCULAR HEMOGLOBIN 32.6 pg (27.0-33.0); MEAN CORPUSCULAR HGB CONC 33.7 g/dl (32.0-36.5); MEAN CORPUSCULAR VOLUME 96.6 fl (80.0-96.0); PLATELET COUNT, AUTOMATED 345 10^3/uL (150-450); RED BLOOD COUNT 3.87 10^6/uL (4.00-5.40)
[2023-05-30] MEDS: ENOXAPARIN 40MG/0.4ML SYRINGE (J1650 PER 10MG) SC SCH (09:00)
[2023-05-30] MEDS: DONEPEZIL 5 MG TAB PO SCH (09:19)
[2023-05-30] MEDS: ESCITALOPRAM OXALATE 10 MG TAB (LEXAPRO) PO SCH (09:19)
[2023-05-30] MEDS: OLANZapine 5 MG TAB PO SCH (09:19)
[2023-05-30] MEDS: DOCUSATE SODIUM 100MG CAPSULE PO SCH (09:19)
[2023-05-30] MEDS: FAMOTIDINE 20 MG TAB PO SCH (09:19)
[2023-05-30] MEDS: SODIUM CHLORIDE NASAL 0.65% SPRAY BTL (OCEAN) SCH ×2 (09:20→16:00)
[2023-05-30] MEDS ORDERED: FAMO20TA PO (17:30)
[2023-05-30] MEDS ORDERED: QUET1TAB17 PO (17:30)
== END 2023-05-30 18:14 | disposition home or self-care (01) | DRG 558 ==
LOC: M ED 12:17 → M ED INP 19:03 → M MSPAV 22:21
PROVIDERS: ADMIT Internal Medicine Nephrology; ATTEND Internal Medicine
DX: M62.82 Rhabdomyolysis (principal); N39.0 Urinary tract infection, site not specified; R29.6 Repeated falls; I10 Essential (primary) hypertension; G30.9 Alzheimer's disease, unspecified; J45.909 Unspecified asthma, uncomplicated; E53.8 Deficiency of other specified B group vitamins; K21.9 Gastro-esophageal reflux disease without esophagitis; F02.80 Dementia in other diseases classified elsewhere, unspecified severity, without behavioral disturbance, psychotic disturbance, mood disturbance, and anxiety; B34.9 Viral infection, unspecified; J01.90 Acute sinusitis, unspecified; Z79.899 Other long term (current) drug therapy; Z88.2 Allergy status to sulfonamides; Z88.0 Allergy status to penicillin; Z91.018 Allergy to other foods; Z88.8 Allergy status to other drugs, medicaments and biological substances; F41.9 Anxiety disorder, unspecified; F32.A Depression, unspecified; F10.10 Alcohol abuse, uncomplicated; Z87.891 Personal history of nicotine dependence; Z66 Do not resuscitate

== ENCOUNTER 2023-08-28 22:31 | Observation (INO) | payer MEDICARE ==
[~2023-08-28] VITALS: Ht 165.1 cm; Wt 56.6 kg
[~2023-08-28 22:31] MED LIST changes: -ALLE1TAB23 PO; +FAMO20TA PO; +FEXO-157 PO; +med rec comment
[2023-08-29 02:41] LABS: HEMATOCRIT 40.9 % (36.0-47.0); HEMOGLOBIN 13.8 g/dl (12.0-15.5); MEAN CORPUSCULAR HEMOGLOBIN 32.8 pg (27.0-33.0); MEAN CORPUSCULAR HGB CONC 33.7 g/dl (32.0-36.5); MEAN CORPUSCULAR VOLUME 97.1 fl (80.0-96.0); PLATELET COUNT, AUTOMATED 311 10^3/uL (150-450); RED BLOOD COUNT 4.21 10^6/uL (4.00-5.40); WHITE BLOOD COUNT 11.6 10^3/uL (4.0-10.0)
[2023-08-29] MEDS: LORazepam 2 MG/ML 1ML VIAL IV STA (02:42)
[2023-08-29 03:07] LABS: ETHYL ALCOHOL (ETHANOL) 0.008 % (0.000-0.010)
[2023-08-29 03:09] LABS: ALBUMIN 4.2 G/DL (3.2-5.2); ALKALINE PHOSPHATASE 100 U/L (46-116); ALT/SGPT 23 U/L (7.0-40); AST/SGOT 22 U/L (<34); BILIRUBIN,DIRECT 0.1 MG/DL (<0.4); BILIRUBIN,TOTAL 0.4 MG/DL (0.3-1.2); BLOOD UREA NITROGEN 19 MG/DL (9-23); CALCIUM LEVEL 9.6 MG/DL (8.3-10.6); CARBON DIOXIDE LEVEL 26 MMOL/L (20-31); CHLORIDE LEVEL 102 MMOL/L (98-107); CREATININE FOR GFR 0.75 MG/DL (0.55-1.30); GLOMERULAR FILTRATION RATE > 60.0 (>39); GLUCOSE, FASTING 109 MG/DL (74-106); POTASSIUM SERUM 3.9 MMOL/L (3.5-5.1); SALICYLATE LEVEL < 3.0 MG/DL (<30); SODIUM LEVEL 137 MMOL/L (136-145); TOTAL PROTEIN 7.6 G/DL (5.7-8.2)
[2023-08-29 03:10] LABS: THYROID STIMULATING HORMONE 2.772 uIU/ML (0.55-4.78)
[2023-08-29 05:39] LABS: AMPHETAMINES LEVEL URINE NEGATIVE (NEGATIVE); BARBITURATES URINE NEGATIVE (NEGATIVE); BENZODIAZEPINES URINE NEGATIVE (NEGATIVE); COCAINE METABOLITE URINE NEGATIVE (NEGATIVE); METHADONE URINE NEGATIVE (NEGATIVE)
[2023-08-29 05:40] LABS: CANNABINOIDS URINE NEGATIVE (NEGATIVE); OPIATES URINE NEGATIVE (NEGATIVE); PHENCYCLIDINE URINE NEGATIVE (NEGATIVE)
[2023-08-29] MEDS: RIVAROXABAN 10MG TAB (XARELTO) PO SCH (09:00)
[2023-08-29] MEDS: QUEtiapine FUMARATE 25 MG TAB PO SCH (09:00)
[2023-08-29 10:00] LABS: INR 1.04; PROTHROMBIN TIME 13.3 SECONDS (12.5-14.5)
[2023-08-29 11:35] VITALS: TEMP 97.5; O2SAT 99
[2023-08-29] MEDS ORDERED: QUET1TAB17 PO (13:38)
[2023-08-29] MEDS ORDERED: HOME MED LIST COMPLETE! XX SCH (13:40)
[2023-08-29 14:00] VITALS: BP 127/76; TEMP 97.9; O2SAT 98
[2023-08-29 20:00] VITALS: BP 147/96; TEMP 97.7; O2SAT 94
[2023-08-29] MEDS: OLANZapine 5 MG TAB PO SCH (20:30)
[2023-08-29] MEDS: OLANZapine INTRAMUSCULAR 10MG VIAL IM ONE (20:36)
[2023-08-29] MEDS: LORazepam 2 MG/ML 1ML VIAL IV ONE (20:37)
[2023-08-30 05:23] VITALS: BP 119/89; TEMP 97.4; O2SAT 97
[2023-08-30 05:59] LABS: HEMATOCRIT 42.2 % (36.0-47.0); HEMOGLOBIN 13.8 g/dl (12.0-15.5); MEAN CORPUSCULAR HEMOGLOBIN 32.3 pg (27.0-33.0); MEAN CORPUSCULAR HGB CONC 32.7 g/dl (32.0-36.5); MEAN CORPUSCULAR VOLUME 98.8 fl (80.0-96.0); PLATELET COUNT, AUTOMATED 249 10^3/uL (150-450); RED BLOOD COUNT 4.27 10^6/uL (4.00-5.40); WHITE BLOOD COUNT 7.2 10^3/uL (4.0-10.0)
[2023-08-30 06:22] LABS: BLOOD UREA NITROGEN 16 MG/DL (9-23); CARBON DIOXIDE LEVEL 25 MMOL/L (20-31); CHLORIDE LEVEL 109 MMOL/L (98-107); CREATININE FOR GFR 0.69 MG/DL (0.55-1.30); GLOMERULAR FILTRATION RATE > 60.0 (>39); GLUCOSE, FASTING 99 MG/DL (74-106); POTASSIUM SERUM 4.4 MMOL/L (3.5-5.1); SODIUM LEVEL 142 MMOL/L (136-145)
[2023-08-30] MEDS: DONEPEZIL 5 MG TAB PO SCH (08:34)
[2023-08-30] MEDS: ESCITALOPRAM OXALATE 10 MG TAB (LEXAPRO) PO SCH (08:34)
[2023-08-30] MEDS: OLANZapine INTRAMUSCULAR 10MG VIAL IM SCH (09:00)
[2023-08-30 14:00] VITALS: BP 111/75; TEMP 98.4; O2SAT 97
[2023-08-30] MEDS: ONDANSETRON 4MG ORAL DISINTEGRATING TAB SL PRN (16:37)
[2023-08-30] MEDS: OLANZapine INTRAMUSCULAR 10MG VIAL IM ONE (17:13)
[2023-08-30] MEDS ORDERED: ONDANSETRON 4MG ORAL DISINTEGRATING TAB SL SCH (18:00)
[2023-08-30 19:38] VITALS: BP 124/74; TEMP 98.4; O2SAT 95
[2023-08-30] MEDS: LORazepam 0.5 MG TAB PO PRN (22:49)
[2023-08-30 22:50] VITALS: O2SAT 92
[2023-08-30 23:33] VITALS: O2SAT 96
[2023-08-31 05:30] VITALS: BP 113/62; TEMP 97.7; O2SAT 97
[2023-08-31] MEDS: LORazepam 2 MG/ML 1ML VIAL IM SCH (17:26)
[2023-09-01 06:34] VITALS: BP 134/79; TEMP 98.2; O2SAT 98
[2023-09-02 06:15] VITALS: BP 130/80; TEMP 98.4; O2SAT 93
[2023-09-02] MEDS: OLANZapine 2.5MG TABLET PO SCH (21:00)
[2023-09-03 06:00] VITALS: BP 132/79; TEMP 98.4; O2SAT 93
[2023-09-03] MEDS: LORazepam 0.5 MG TAB PO SCH (09:10)
[2023-09-04 05:34] VITALS: BP 145/88; TEMP 97.9; O2SAT 95
[2023-09-04] MEDS: ACETAMINOPHEN TAB 650MG DOSE (2X325MG) PO PRN (15:19)
[2023-09-05 05:30] VITALS: BP 140/80; TEMP 97.7; O2SAT 94
[2023-09-05] MEDS: OLANZapine ORAL DISINTEGRATING TAB 5MG PO PRN (12:19)
[2023-09-05] MEDS ORDERED: PILL CUTTER 1 EACH XX PRN (12:20)
[2023-09-06 05:10] VITALS: BP 125/93; TEMP 97.9; O2SAT 99
[2023-09-06] MEDS ORDERED: MIRALAX *UNIT DOSE* 17GM PACKET PO PRN (10:05)
[2023-09-06] MEDS: LORazepam 2 MG/ML 1ML VIAL IM PRN (10:59)
[2023-09-06] MEDS: SENOKOT S TAB PO SCH (20:39)
[2023-09-07 06:00] VITALS: BP 139/97; TEMP 98.4; O2SAT 98
[2023-09-07] MEDS: LORazepam 0.5 MG TAB PO SCH (13:12)
[2023-09-08 05:34] VITALS: BP 137/65; TEMP 98; O2SAT 96
[2023-09-09 06:00] VITALS: BP_SYST 142; BP_SYST 149; BP_DIAS 80; BP_DIAS 89; TEMP 98.4; TEMP 98.8; O2SAT 96
[2023-09-11 06:00] VITALS: BP 142/86; TEMP 98.6; O2SAT 95
[2023-09-12 06:00] VITALS: BP 116/75; TEMP 97.9; O2SAT 93
[2023-09-13 06:03] VITALS: BP 131/75; TEMP 98.3; O2SAT 97
[2023-09-13] MEDS ORDERED: QUEtiapine FUMARATE 25 MG TAB PO SCH (16:00)
[2023-09-13] MEDS: QUEtiapine FUMARATE 50MG TAB PO SCH (21:49)
[2023-09-13] MEDS: OLANZapine 2.5MG TABLET PO SCH (21:49)
[2023-09-14 06:00] VITALS: BP 121/69; TEMP 97.7; O2SAT 100
[2023-09-15 06:00] VITALS: BP 130/88; TEMP 97.7; O2SAT 97
[2023-09-15] MEDS: QUEtiapine FUMARATE 50MG TAB PO SCH (18:06)
[2023-09-16 06:03] VITALS: BP 98/70; TEMP 98.2; O2SAT 91
[2023-09-16 09:11] VITALS: BP 125/75
[2023-09-17 06:55] VITALS: BP 133/77; TEMP 98.1; O2SAT 98
[2023-09-18 06:00] VITALS: BP 133/76; TEMP 98.1; O2SAT 96
[2023-09-18] MEDS: SENOKOT S TAB PO SCH (09:22)
[2023-09-18] MEDS: QUEtiapine FUMARATE 50MG TAB PO SCH (16:32)
[2023-09-19 05:20] VITALS: BP 126/70; TEMP 97.9; O2SAT 95
[2023-09-20 06:00] VITALS: BP 127/90; TEMP 97.9; O2SAT 100
[2023-09-21 06:20] VITALS: BP 127/89; TEMP 97.9; O2SAT 97
[2023-09-21] MEDS: OLANZapine 2.5MG TABLET PO PRN (08:51)
[2023-09-21] MEDS: FLUTICASONE PROP 0.05% NASAL SPRAY 16 GM (FLONASE) NARES PRN (16:32)
[2023-09-22 05:49] VITALS: BP 125/84; TEMP 96.8; O2SAT 96
[2023-09-23 05:00] VITALS: BP 118/77; TEMP 97.9; O2SAT 96
[2023-09-24 06:00] VITALS: BP 140/82; TEMP 97.4; O2SAT 99
[2023-09-25 04:56] VITALS: BP 109/72; TEMP 97; O2SAT 95
[2023-09-25 19:16] LABS: HEMATOCRIT 40.4 % (36.0-47.0); HEMOGLOBIN 13.6 g/dl (12.0-15.5); MEAN CORPUSCULAR HEMOGLOBIN 32.7 pg (27.0-33.0); MEAN CORPUSCULAR HGB CONC 33.7 g/dl (32.0-36.5); MEAN CORPUSCULAR VOLUME 97.1 fl (80.0-96.0); PLATELET COUNT, AUTOMATED 220 10^3/uL (150-450); RED BLOOD COUNT 4.16 10^6/uL (4.00-5.40); WHITE BLOOD COUNT 7.3 10^3/uL (4.0-10.0)
[2023-09-25 19:35] LABS: ALBUMIN 3.6 G/DL (3.2-5.2); ALKALINE PHOSPHATASE 83 U/L (46-116); ALT/SGPT 19 U/L (7.0-40); AST/SGOT 21 U/L (<34); BILIRUBIN,TOTAL 0.3 MG/DL (0.3-1.2); BLOOD UREA NITROGEN 13 MG/DL (9-23); CALCIUM LEVEL 8.8 MG/DL (8.3-10.6); CARBON DIOXIDE LEVEL 28 MMOL/L (20-31); CHLORIDE LEVEL 101 MMOL/L (98-107); GLOMERULAR FILTRATION RATE > 60.0 (>39); GLUCOSE, FASTING 104 MG/DL (74-106); POTASSIUM SERUM 4.4 MMOL/L (3.5-5.1); SODIUM LEVEL 135 MMOL/L (136-145); TOTAL PROTEIN 6.8 G/DL (5.7-8.2)
[2023-09-25 19:37] LABS: FOLATE 13.26 NG/ML (>5.4); VITAMIN B12 LEVEL 448 PG/ML (211-911)
[2023-09-25] MEDS: LORazepam 0.5 MG TAB PO SCH (20:32)
[2023-09-26 05:48] VITALS: BP 128/83; TEMP 97.7; O2SAT 93
[2023-09-26] MEDS: OLANZapine 2.5MG TABLET PO PRN (12:57)
[2023-09-26] MEDS ORDERED: LORazepam 0.5 MG TAB PO ONE (13:35)
[2023-09-26] MEDS: LORazepam 0.5 MG TAB PO PRN (13:55)
[2023-09-27 06:57] VITALS: BP 120/81; TEMP 97.7; O2SAT 95
[2023-09-27] MEDS: LIDOCAINE 5% (LIDODERM) PATCH TD SCH (15:16)
[2023-09-27] MEDS: QUEtiapine FUMARATE 12.5 MG HALF-TAB PO SCH (16:21)
[2023-09-27] MEDS ORDERED: NIRMATRELVIR/RITONAVIR CO-PACK (EMERGENCY USE AUTH) PO SCH (21:00)
[2023-09-28 06:00] VITALS: BP 133/68; TEMP 98.2; O2SAT 92
[2023-09-28] MEDS: NIRMATRELVIR/RITONAVIR CO-PACK (EMERGENCY USE AUTH) PO SCH (12:39)
[2023-09-29 06:00] VITALS: BP 138/88; TEMP 97.5; O2SAT 97
[2023-09-29] MEDS ORDERED: PILL CUTTER 1 EACH XX PRN (17:05)
[2023-09-29] MEDS: HALOPERIDOL 5MG/ML 1ML VIAL IM PRN (19:31)
[2023-09-29] MEDS: LORazepam 0.5 MG TAB PO SCH (21:00)
[2023-09-29] MEDS: QUEtiapine FUMARATE 12.5 MG HALF-TAB PO SCH (21:00)
[2023-09-30 06:00] VITALS: BP 125/65; TEMP 98.8; O2SAT 93
[2023-09-30] MEDS: OLANZapine 2.5MG TABLET PO PRN (10:49)
[2023-10-01 05:26] VITALS: BP 134/83; TEMP 97.7; O2SAT 97
[2023-10-01] MEDS: LORazepam 0.5 MG TAB PO PRN (11:37)
[2023-10-02 06:00] VITALS: BP 151/80; TEMP 97.9; O2SAT 100
[2023-10-03 06:11] VITALS: BP 138/66; TEMP 97.9; O2SAT 98
[2023-10-04 06:00] VITALS: BP 107/66; TEMP 97.9; O2SAT 96
[2023-10-05 06:20] VITALS: BP 107/71; TEMP 97.9; O2SAT 94
[2023-10-05] MEDS: LORazepam 2 MG/ML 1ML VIAL IM PRN (14:49)
[2023-10-05] MEDS: QUEtiapine FUMARATE 50MG TAB PO SCH (20:33)
[2023-10-06 06:42] VITALS: BP 114/72; TEMP 98.1; O2SAT 94
[2023-10-06] MEDS: OLANZapine INTRAMUSCULAR 10MG VIAL IM PRN (09:17)
[2023-10-06] MEDS: OLANZapine 2.5MG TABLET PO PRN (11:46)
[2023-10-06] MEDS: traMADol 50 MG TAB PO PRN (12:12)
[2023-10-07 06:00] VITALS: BP 109/58; TEMP 98.2; O2SAT 96
[2023-10-08 06:00] VITALS: BP 114/72; TEMP 97.2; O2SAT 94
[2023-10-09 06:00] VITALS: BP 148/72; TEMP 97.6; O2SAT 95
[2023-10-09 14:01] VITALS: O2SAT 97
[2023-10-09 16:14] VITALS: O2SAT 96
[2023-10-10 06:00] VITALS: BP 144/76; TEMP 97.7; O2SAT 97
[2023-10-11 06:03] VITALS: BP 139/81; TEMP 98.8; O2SAT 94
[2023-10-12 06:00] VITALS: BP 113/71; TEMP 98.1; O2SAT 96
[2023-10-13 05:20] VITALS: BP 131/74; TEMP 98.1; O2SAT 98
[2023-10-14 05:06] VITALS: BP 106/62; TEMP 98.1; O2SAT 95
[2023-10-15 05:23] VITALS: BP 140/80; TEMP 98.9; O2SAT 96
[2023-10-15] MEDS: predniSONE 20 MG TAB PO SCH (21:55)
[2023-10-16 06:06] VITALS: BP 125/75; TEMP 98.4; O2SAT 96
[2023-10-17 06:10] VITALS: BP 138/84; TEMP 98.1; O2SAT 96
[2023-10-18 05:29] VITALS: BP 131/64; TEMP 98.9; O2SAT 94
[2023-10-20 05:08] VITALS: BP 130/74; TEMP 98.7; O2SAT 94
[2023-10-20] MEDS: OLANZapine 2.5MG TABLET PO PRN (15:04)
[2023-10-20] MEDS: QUEtiapine FUMARATE 50MG TAB PO SCH (20:23)
[2023-10-21 05:20] VITALS: BP 112/66; TEMP 98.1; O2SAT 95
[2023-10-22] MEDS: LIDOCAINE 1% MDV 20ML VIAL SC ONE (03:35)
[2023-10-22 04:49] VITALS: BP 185/93; TEMP 98; O2SAT 98
[2023-10-22 06:00] VITALS: BP 151/89; TEMP 99.3; O2SAT 94
[2023-10-22 06:05] LABS: HEMATOCRIT 40.4 % (36.0-47.0); HEMOGLOBIN 13.4 g/dl (12.0-15.5); MEAN CORPUSCULAR HGB CONC 33.2 g/dl (32.0-36.5); MEAN CORPUSCULAR VOLUME 96.4 fl (80.0-96.0); PLATELET COUNT, AUTOMATED 318 10^3/uL (150-450); RED BLOOD COUNT 4.19 10^6/uL (4.00-5.40)
[2023-10-22 06:36] LABS: BLOOD UREA NITROGEN 17 MG/DL (9-23); CARBON DIOXIDE LEVEL 28 MMOL/L (20-31); CHLORIDE LEVEL 102 MMOL/L (98-107); CREATININE FOR GFR 0.69 MG/DL (0.55-1.30); GLOMERULAR FILTRATION RATE > 60.0 (>39); GLUCOSE, FASTING 107 MG/DL (74-106); MAGNESIUM LEVEL 2.1 MG/DL (1.8-2.4); POTASSIUM SERUM 4.5 MMOL/L (3.5-5.1); SODIUM LEVEL 136 MMOL/L (136-145)
[2023-10-22] MEDS: LORazepam 0.5 MG TAB PO SCH (07:54)
[2023-10-22] MEDS: POLYSPORIN TOPICAL OINTMENT 15GM TOP SCH (09:24)
[2023-10-23 05:22] VITALS: BP 144/81; O2SAT 98
[2023-10-24 05:48] VITALS: BP 137/79; TEMP 98.8; O2SAT 97
[2023-10-25 05:31] VITALS: BP 126/76; TEMP 98.2; O2SAT 95
[2023-10-26 06:53] VITALS: BP 142/85; TEMP 97.2; O2SAT 98
[2023-10-26] MEDS: LIDOCAINE 5% (LIDODERM) PATCH TD SCH (12:13)
[2023-10-28 06:00] VITALS: BP 127/85; TEMP 97.7; O2SAT 97
[2023-10-29 05:18] VITALS: BP 122/70; TEMP 97.5; O2SAT 96
[2023-10-30 05:29] VITALS: BP 117/75; TEMP 97.9; O2SAT 98
[2023-10-31 06:00] VITALS: BP 135/84; TEMP 98.2; O2SAT 95
[2023-11-01 05:28] VITALS: TEMP 98.1; O2SAT 96
[2023-11-02 06:30] VITALS: BP 142/90; TEMP 98.6; O2SAT 99
[2023-11-03 05:20] VITALS: BP 144/92; TEMP 98.4; O2SAT 95
[2023-11-04 06:00] VITALS: BP 146/93; TEMP 97.9; O2SAT 93
[2023-11-05 06:00] VITALS: BP 133/85; TEMP 97.5; O2SAT 97
[2023-11-06 05:57] VITALS: BP 138/89; TEMP 97.9; O2SAT 98
[2023-11-07 05:28] VITALS: BP 140/89; TEMP 97.5; O2SAT 96
[2023-11-08 05:15] VITALS: BP 131/75; TEMP 97.9; O2SAT 95
[2023-11-09 06:00] VITALS: BP 139/81; TEMP 98.1; O2SAT 98
[2023-11-10 06:15] VITALS: BP 143/88; TEMP 98.1; O2SAT 96
[2023-11-11 06:00] VITALS: BP 116/75; TEMP 98.6; O2SAT 98
[2023-11-12 06:00] VITALS: BP 119/61; TEMP 97.7; O2SAT 100
[2023-11-13 05:52] VITALS: BP 143/97; TEMP 98.8; O2SAT 96
[2023-11-14 05:34] VITALS: BP 134/85; TEMP 98.2; O2SAT 96
[2023-11-14 20:00] VITALS: BP 116/58; TEMP 98.8; O2SAT 18
[2023-11-15 06:00] VITALS: BP 142/84; TEMP 98.4; O2SAT 16
[2023-11-16 06:57] VITALS: BP 135/77; TEMP 97.2; O2SAT 96
[2023-11-17 05:54] VITALS: BP 133/78; TEMP 98.2; O2SAT 97
[2023-11-17] MEDS: RIVAROXABAN 10MG TAB (XARELTO) PO SCH (19:40)
[2023-11-18 06:34] VITALS: BP 133/79; TEMP 98.6; O2SAT 97
[2023-11-18] MEDS: LIDOCAINE 5% (LIDODERM) PATCH TD ONE (21:06)
[2023-11-19 06:00] VITALS: BP 123/78; TEMP 98.2; O2SAT 97
[2023-11-20 04:40] VITALS: BP 112/68; TEMP 97.7; O2SAT 95
[2023-11-21 06:00] VITALS: BP 140/83; TEMP 97.9; O2SAT 97
[2023-11-22 06:22] VITALS: BP 132/80; TEMP 97.5; O2SAT 98
[2023-11-23 06:00] VITALS: BP 146/88; TEMP 98.4; O2SAT 96
[2023-11-24 06:00] VITALS: BP 129/82; TEMP 97.9; O2SAT 95
[2023-11-25 06:00] VITALS: BP 154/78; TEMP 97.7; O2SAT 97
[2023-11-25] MEDS: ANALGESIC BALM CRM 3OZ TOP SCH (13:36)
[2023-11-26 05:44] VITALS: BP 134/75; TEMP 97.9; O2SAT 95
[2023-11-27 05:46] VITALS: BP 131/87; TEMP 97.7; O2SAT 95
[2023-11-28 05:20] VITALS: BP 127/79; TEMP 97.7; O2SAT 96
[2023-11-29 05:50] VITALS: BP 132/79; TEMP 97.9; O2SAT 97
[2023-11-30 05:30] VITALS: BP 126/82; TEMP 98.2; O2SAT 95
[2023-12-01 06:30] VITALS: BP 127/71; TEMP 97.7; O2SAT 98
[2023-12-01] MEDS ORDERED: MAALOX 30 ML SUSP *UDC PO PRN (20:20)
[2023-12-02 06:11] VITALS: BP 134/69; TEMP 98.1; O2SAT 96
[2023-12-03 05:28] VITALS: BP 134/82; TEMP 97.7; O2SAT 97
[2023-12-04 06:00] VITALS: BP 143/80; TEMP 97.7; O2SAT 96
[2023-12-05 06:02] VITALS: BP 128/77; TEMP 98.1; O2SAT 95
[2023-12-06 05:33] VITALS: BP 110/58; TEMP 98.1; O2SAT 98
[2023-12-06 05:38] VITALS: BP 110/58; TEMP 98.1; O2SAT 98
[2023-12-07 06:00] VITALS: BP 149/97; TEMP 97.7; O2SAT 98
[2023-12-08 04:09] VITALS: BP 135/86; TEMP 97.9; O2SAT 96
[2023-12-09 06:50] VITALS: BP 131/71; TEMP 97.5; O2SAT 95
[2023-12-11 06:00] VITALS: BP 143/87; TEMP 97.9; O2SAT 95
[2023-12-12 06:00] VITALS: BP 135/72; TEMP 97; O2SAT 95
[2023-12-13] MEDS ORDERED: OLAN1TAB16 PO (10:54)
[2023-12-13] MEDS ORDERED: ATIV1TAB10 PO (10:54)
[2023-12-13] MEDS ORDERED: QUET50TA4 PO (10:54)
[2023-12-13] MEDS ORDERED: MIRA33506 PO (10:54)
[2023-12-13] MEDS ORDERED: SENN-52 PO (10:54)
== END 2023-12-13 12:42 | disposition other institution (70) ==
LOC: M ED 22:31 → M ED INP 22:32 → ENRESERV 08-29 11:15 → M MSPAV 08-29 11:32 → INTOOBSV 10-22 05:44 → OBSVTOIN 10-22 05:44
PROVIDERS: ADMIT Internal Medicine Nephrology; ATTEND Internal Medicine
DX: G30.8 Other Alzheimer's disease (principal); F03.918 Unspecified dementia, unspecified severity, with other behavioral disturbance; G31.9 Degenerative disease of nervous system, unspecified; F41.9 Anxiety disorder, unspecified; F32.A Depression, unspecified; D51.9 Vitamin B12 deficiency anemia, unspecified; I10 Essential (primary) hypertension; F10.10 Alcohol abuse, uncomplicated; J45.909 Unspecified asthma, uncomplicated; K21.9 Gastro-esophageal reflux disease without esophagitis; G40.89 Other seizures; K80.20 Calculus of gallbladder without cholecystitis without obstruction; M71.22 Synovial cyst of popliteal space [Baker], left knee; Z87.891 Personal history of nicotine dependence; Z79.899 Other long term (current) drug therapy; Z91.018 Allergy to other foods; Z88.2 Allergy status to sulfonamides; Z88.0 Allergy status to penicillin; Z88.8 Allergy status to other drugs, medicaments and biological substances; M25.571 Pain in right ankle and joints of right foot; U07.1 COVID-19; K59.00 Constipation, unspecified; M79.604 Pain in right leg
CPT/HCPCS: 36415; 51701; 70450; 71250; 73560; 73590; 73610; 74176; 80048; 80053; 80076; 80143; 80307; 81001; 82077; 82607; 82746; 83735; 84443; 84550; 85027; 85610; 85730; 87426; 87486; 87581; 87633; 87635; 87798; 92610; 93005; 93971; 96372; 96374; 96376; 97161; 99284; G0378; J1630; J2060; J2359; J7512